=== PATIENT | female | born 1955 | race Caucasian/White ===

== ENCOUNTER 2023-02-24 13:48 | Outpatient (OUT) | payer MEDICARE, MEDICAID, SELFPAY ==
[2023-02-24 14:57] LABS: Thyroid Stimulating Hormone 0.756 uIU/mL (0.358-3.740)
[2023-02-24 15:10] LABS: Free T4 0.76 ng/dL (0.76-1.46)
== END 2023-02-24 13:49 | disposition home or self-care (01) ==
LOC: LAB 13:55
PROVIDERS: PCP Nurse Practitioner; Visit Provider Nurse Practitioner
DX: E03.9 Hypothyroidism, unspecified (principal); E55.9 Vitamin D deficiency, unspecified
CPT/HCPCS: 36415; 82306; 84439; 84443

== ENCOUNTER 2023-02-24 14:03 | Outpatient (OUT) | payer MEDICARE, MEDICAID, SELFPAY ==
[2023-02-24 14:42] LABS: Basophils Absolute Auto 0.1 10^3/uL (0.0-0.1); Basophils Percent Auto 0.6 % (0.2-2.0); Eosinophils Absolute Auto 0.2 10^3/uL (0.0-0.7); Eosinophils Percent Auto 2.3 % (0.9-7.0); Hematocrit 43.6 % (36.0-48.0); Immature Granulocytes Abs Auto 0.03 10^3/uL (0.00-0.03); Immature Granulocytes Pct Auto 0.4 % (0.0-0.5); Lymphocytes Absolute Auto 2.6 10^3/uL (1.2-3.8); Lymphocytes Percent Auto 31.2 % (20.5-60.0); Mean Corpuscular HGB Conc 32.1 g/dL (29.9-35.2); Mean Corpuscular Hemoglobin 26.6 pg (26.7-34.0); Mean Corpuscular Volume 82.9 fL (81.0-99.0); Mean Platelet Volume 11.7 fL (9.5-13.5); Monocytes Absolute Auto 0.7 10^3/uL (0.3-0.8); Monocytes Percent Auto 8.7 % (1.7-12.0); Neutrophils Absolute Auto 4.7 10^3/uL (1.4-6.5); Neutrophils Percent Auto 56.8 % (43.0-75.0); Platelet Count 180 10^3/uL (150-450); Red Blood Count 5.26 10^6/uL (4.20-5.40); Red Cell Distribution Width 15.3 % (11.0-15.0); White Blood Count 8.3 10^3/uL (4.0-11.0)
[2023-02-24 15:16] LABS: Alanine Aminotransferase 10 U/L (14-59); Albumin Globulin Ratio 1.3; Albumin Level 3.9 g/dL (3.4-5.0); Alkaline Phosphatase 73 U/L (46-116); Aspartate Amino Transferase 14 U/L (15-37); Bilirubin Direct 0.1 mg/dL (0.0-0.2); Bilirubin Total 0.4 mg/dL (0.2-1.0); Chol HDL Ratio 3.9; Cholesterol 295 mg/dL (<=200); Globulin 2.9 g/dL; Glucose 88 mg/dL (74-106); HDL Cholesterol 76 mg/dL (40-60); Total Protein 6.8 g/dL (6.4-8.2); Triglycerides 62 mg/dL (<=150); VLDL CHOLESTEROL 12.4 mg/dL
== END 2023-02-24 14:04 | disposition home or self-care (01) ==
LOC: LAB 14:05
PROVIDERS: PCP Nurse Practitioner; Visit Provider Psychiatry & Neurology Psychiatry
DX: E03.9 Hypothyroidism, unspecified (principal); E55.9 Vitamin D deficiency, unspecified; Z79.899 Other long term (current) drug therapy; F32.9 Major depressive disorder, single episode, unspecified
CPT/HCPCS: 36415; 80061; 80076; 80164; 82306; 82947; 84439; 84443; 85025

== ENCOUNTER 2023-09-21 14:25 | Outpatient (OUT) | payer MEDICARE, MEDICAID, SELFPAY ==
[2023-09-21 15:38] LABS: Influenza Virus A Antigen Negative; Influenza Virus B Antigen Negative; Internal Control Within Normal Limits
[2023-09-22 15:29] LABS: SARS-CoV-2 NAA NOT DETECTED (NOT DETECTE)
== END 2023-09-21 14:26 | disposition home or self-care (01) ==
LOC: LAB 14:34
PROVIDERS: PCP Nurse Practitioner; Visit Provider Nurse Practitioner
DX: Z20.822 Contact with and (suspected) exposure to COVID-19 (principal); Z11.8 Encounter for screening for other infectious and parasitic diseases
CPT/HCPCS: 87635; 87804

== ENCOUNTER 2023-09-21 14:25 | Outpatient (OUT) | payer MEDICARE, MEDICAID, SELFPAY ==
[2023-09-21 15:22] LABS: Basophils Absolute Auto 0.1 10^3/uL (0.0-0.1); Basophils Percent Auto 0.6 % (0.2-2.0); Eosinophils Absolute Auto 0.3 10^3/uL (0.0-0.7); Eosinophils Percent Auto 2.8 % (0.9-7.0); Hematocrit 44.5 % (36.0-48.0); Immature Granulocytes Abs Auto 0.04 10^3/uL (0.00-0.03); Immature Granulocytes Pct Auto 0.4 % (0.0-0.5); Lymphocytes Absolute Auto 3.2 10^3/uL (1.2-3.8); Lymphocytes Percent Auto 29.6 % (20.5-60.0); Mean Corpuscular HGB Conc 31.5 g/dL (29.9-35.2); Mean Corpuscular Hemoglobin 26.2 pg (26.7-34.0); Mean Corpuscular Volume 83.3 fL (81.0-99.0); Mean Platelet Volume 12.7 fL (9.5-13.5); Neutrophils Absolute Auto 6.2 10^3/uL (1.4-6.5); Neutrophils Percent Auto 57.6 % (43.0-75.0); Platelet Count 247 10^3/uL (150-450); Red Blood Count 5.34 10^6/uL (4.20-5.40); Red Cell Distribution Width 14.6 % (11.0-15.0); White Blood Count 10.8 10^3/uL (4.0-11.0)
[2023-09-21 15:49] LABS: Alanine Aminotransferase 61 U/L (14-59); Albumin Globulin Ratio 0.8; Albumin Level 3.4 g/dL (3.4-5.0); Alkaline Phosphatase 116 U/L (46-116); Anion Gap 16.3; Aspartate Amino Transferase 34 U/L (15-37); BUN Creatinine Ratio 14.8; Bilirubin Direct 0.1 mg/dL (0.0-0.2); Bilirubin Total 0.3 mg/dL (0.2-1.0); Calcium 9.6 mg/dL (8.5-10.1); Carbon Dioxide 26.1 mmol/L (21.0-32.0); Chol HDL Ratio 3.4; Cholesterol 249 mg/dL (<=200); Estimated GFR (African America 56 (>=60); Estimated GFR (Non-African Ame 47 (>=60); Globulin 4.3 g/dL; Glucose 104 mg/dL (74-106); HDL Cholesterol 74 mg/dL (40-60); Thyroid Stimulating Hormone 1.107 uIU/mL (0.358-3.740); Total Protein 7.7 g/dL (6.4-8.2); Triglycerides 77 mg/dL (<=150); VLDL CHOLESTEROL 15.4 mg/dL; Valproic Acid 45.8 ug/mL (50.0-100.0)
[2023-09-21 15:54] LABS: Chloride 101 mmol/L (98-107); Potassium 4.2 mmol/L (3.5-5.1); Sodium 138 mmol/L (136-145)
[2023-09-21 16:20] LABS: Estimated Average Glucose 111 mg/dL; Glycohemoglobin A1C 5.5 % (4.5-6.2)
[2023-09-22 08:13] LABS: Triiodothyronine (T3) 94 ng/dL (71-180)
== END 2023-09-21 14:26 | disposition home or self-care (01) ==
LOC: LAB 14:30
PROVIDERS: PCP Nurse Practitioner; Visit Provider Psychiatry & Neurology Psychiatry
DX: Z79.899 Other long term (current) drug therapy (principal); F32.9 Major depressive disorder, single episode, unspecified; Z20.822 Contact with and (suspected) exposure to COVID-19; Z11.8 Encounter for screening for other infectious and parasitic diseases
CPT/HCPCS: 36415; 80053; 80061; 80076; 80164; 83036; 84436; 84443; 84480; 85025; 87635; 87804

== ENCOUNTER 2024-12-10 09:57 | Outpatient (OUT) | payer MEDICARE, MEDICAID, SELFPAY ==
--- OUTSIDE RECORDS SUMMARY | 2024-04-09 10:15 | XMS_ITS ---
Author Organization [facility] Address [address] [place] [id number] Care Team Providers Care Conductor Road Freight Name Role Phone HowardChanda valeica Unavailable [phone] REASON FOR VISIT Recall (A) (29) Social History Sex Assigned At : Social History Observation Description Sex Assigned At Female Encounters Encounter Location Date Provider Diagnosis [facility] [address] [place] [phone] 04/09/2024 Shauna Beckett Plan Of Treatment Next Appt Details Provider Name:Shauna Beckett , 12/11/2024 03:45:00 PM, [address] [place] [address], [phone], Progress Notes * Chela MEYERSOB: (69 yo F)Acc No.[id number]:04/09/2024 Patient: Lucille MARIA Provider: Clara Beckett DMD :1955 A ge:68 Y S ex:Female Date:04/09/2024 Address:[facility] [address] [facility] [id number] Subjective: * Chief Complaints: * 1 . Recall (A) (70). * Medical History: Objective: * Vitals: Assessment: Plan: * Treatment: * Billing Information: * Visit Code: * Procedure Codes: * Electronic signature of Chanda Beckett DMD on 12/10/2024 at 10:03 AM EDT Sign off status: Pending * Provider: Clara Beckett DMD Date: 0 04/09/2024 Generated for Printi ng/Fadhruvg/eTransmitting on: 0 12/10/2024 10:03 AM EDT
--- OUTSIDE RECORDS SUMMARY | 2024-11-14 06:45 | XMS_ITS ---
Author Organization [facility] Address [address] [place] [phone] Care Team Providers Care Last Ironer Name Role Phone Shauna Beckett Unavailable [phone] Sukhwinder Crockett Unavailable [phone] REASON FOR VISIT Periodic Exam Social History Sex Assigned At : Social History Observation Description Sex Assigned At Female Encounters Encounter Location Date Provider Diagnosis [facility] [address] [place] [phone] 11/14/2024 Sukhwinder Crockett Plan Of Treatment Next Appt Details Provider Name:Shauna Beckett , 12/11/2024 03:45:00 PM, [address] [place], [place], [phone], Progress Notes * Chela MEYERSOB: (69 yo F)Acc No.[id number]:11/14/2024 Patient: Lucille MARIA Provider: Yara Crockett DDS :1955 A ge:69 Y S ex:Female Date:11/14/2024 Address[address] [id number] Subjective: * Chief Complaints: * 1 . Periodic Exam. * Medical History: Objective: * Vitals: Assessment: Plan: * Treatment: * Billing Information: * Visit Code: * Procedure Codes: * Electronic signature of Carl Crockett DDS on 12/10/2024 at 10:03 AM EDT Sign off status: Pending * Provider: Yara Crockett DDS Date: 0 11/14/2024 Generated for Chante doran/Kehinde/Jinny on: 0 12/10/2024 10:03 AM EDT
--- OUTSIDE RECORDS SUMMARY | 2024-12-04 08:45 | XMS_ITS ---
Author Organization [facility] Address [address] [place] [id number] Care Team Providers Care Production Welder Name Role Phone Chanda Beckettica Unavailable [phone] REASON FOR VISIT 1 Year Recall (A) (71) Social History Sex Assigned At : Social History Observation Description Sex Assigned At Female Encounters Encounter Location Date Provider Diagnosis [facility] [address] [place] [phone] 12/04/2024 Shauna Beckett Plan Of Treatment Next Appt Details Provider Name:Shauna Hatkavin , 12/11/2024 03:45:00 PM, [address] [place] [address], [phone], Progress Notes * Chela MEYERSOB: (69 yo F)Acc No.[id number]:12/04/2024 Patient: Lucille MARIA Provider: Clara Beckett DMD :1955 A ge:69 Y S ex:Female Date:12/04/2024 Address:[address] [facility] [id number] Subjective: * Chief Complaints: * 1 . 1 Year Recall (A) (71). * Medical History: Objective: * Vitals: Assessment: Plan: * Treatment: * Billing Information: * Visit Code: * Procedure Codes: * Electronic signature of Chanda Beckett DMD on 12/10/2024 at 10:02 AM EDT Sign off status: Pending * Provider: Clara Beckett DMD Date: 0 12/04/2024 Generated for Jasoni espinoza/Kehinde/eTransmitting on: 0 12/10/2024 10:02 AM EDT
--- OUTSIDE RECORDS SUMMARY | 2024-12-05 14:40 | XMS_ITS | Encounter Summary ---
Author Organization [facility] Address [address] [place] [address] Care Team Providers Care Recovery Operator Helper Name Role Phone Cesia Acosta OPTICIAN Unavailable [phone] Jordi Resendiz MD Primary Care Provider [phone] Cesia Acosta OPTICIAN Unavailable [phone] Reason for Visit * Reason Comments Medicare Annual Wellness Visit Initial Encounter Details Date Type Department Care Team (Late st Contact Info) Description 12/05/2024 2:40 PM EDT Office Visit [facility] [address] [place] [address] Cesia Acosta OPTICIAN [address] [place] [phone] Encounter for subsequent annual wellness visit (AWV) in Medicare patient (Primary Dx); Primary hypothyroidism (CMS/HCC); Environmental and seasonal allergies; Mixed hyperlipidemia (CMS/HCC); Major depressive disorder with single episode, in partial remission (HCC) (CMS/HCC); Encounter for screening mammogram for malignant neoplasm of breast Social History Tobacco Use Types Packs/Day Years Used Date Smoking Tobacco: Every Day Cigarettes Alcohol Use Standard Drinks/Week Comments Yes 2 (1 standard drink = 0.6 oz pur e alcohol) caffine: coffee 2 cups daily PHQ-2 Answer Date Recorded Patient Health Questionnaire-2 Score 2 12/05/2024 Comments Unknown Sex and Gender Information Value Date Recorded Sex Assigned at Not on file Legal Sex Female 8:35 PM EDT Gender Identity Not on file Sexual Orientation Not on file documented as of this encounter Last Filed Vital Signs Vital Sign Reading Time Taken Comments Blood Pressure 120/80 12/05/2024 2:50 PM EDT Pulse 69 12/05/2024 2:50 PM EDT Temperature 36.9 C (98.5 F) 12/05/2024 2:50 PM EDT Respiratory Rate 20 12/05/2024 2:50 PM EDT Oxygen Saturation 92% 12/05/2024 2:50 PM EDT Inhaled Oxygen Concentration - - Weight 75.8 kg (167 lb 3.2 oz) 12/05/2024 2:50 P M EDT Height - - Body Mass Index 28.7 10/12/2023 2:32 PM EDT documented in this encounter Functional Status * Over the past 2 weeks, how often have you been bothered by any of the following problems? Question Answer Date of Assessment Author Little interest or pleasure in doing things Several days 12/05/2024 3:01 PM EDT TAYE SORIANO Feeling down, depressed, or hopeless Several days 12/05/2024 3:01 PM EDT TAYE SORIANO Patient Health Questionnaire -2 Score 2 12/05/2024 3:01 PM EDT TAYE SORIANO A * Question Answer Date of Assessment Author Trouble falling or staying asleep, or sleeping too much Not at all 12/05/2024 3:01 PM EDT TAYE SORIANO A Feeling tired or having little energy Nearly every day 12/05/2024 3:01 PM EDT TAYE SORIANO A Poor appetite or overeating Several days 12/05/2024 3:01 PM EDT TAYE SORIANO A Feeling bad about yourself - or that you are a failure or have let yourself or your family down Several days 12/05/2024 3:01 PM EDT TAYE SORIANO A Trouble concentrating on things, such as reading the newspaper or watching television Several days 12/05/2024 3:01 PM EDT TAYE SORIANO A Moving or speaking so slowly that other people could have noticed? Or the opposite - being so fidgety or restless that you have been moving around a lot more than usual. Not at all 12/05/2024 3:01 PM EDT TAYE SORIANO A Thoughts that you would be better off or hurting yourself in some way Not at all 12/05/2024 3:01 PM EDT JANAK SORIANO Patient Health Questionnaire-9 Score 8 12/05/2024 3:01 PM EDT DARIO SORIANO * How difficult have these problems made it for you to do your work, take care of things at home, or get along with other people? Answer Date of Assessment Author Not difficult at all 12/05/2024 3:01 PM EDT MEGAN EDWARDS documented as of this encounter Patient Instructions * Patient Instructions* Cesia Acosta NP - 12/05/2024 2:40 PM EDT Get labs checked Try some allergy medications for next 2 weeks if not better call me documented in this encounter Progress Notes * Cesia Acosta NP - 12/05/2024 5:32 PM EDTAssociated Problem(s): Encounter for subsequent annual wellness visit (AWV) in Medicare patient Reviewed Ht/Wt/BMI Recommend eye exam yearly Recommend dental exams twice a year Balance work/leisure activities Exercises is recommended most days of the week (appropriate as chronic conditions allow) Follow up yearly and prn * Cesia Acosta NP - 12/05/2024 5:31 PM EDTAssociated Problem(s): Major depressive disorder with single episode, in partial remission (HCC) (CMS/HCC) Continue with dr ward * Cesia Acosta NP - 12/05/2024 5:31 PM EDTAssociated Problem(s): Mixed hyperlipidemia (CMS/HCC) Statin therapy prescribed Check labs yearly and prn dose changes * Cesia Acosta NP - 12/05/2024 5:30 PM EDTAssociated Problem(s): Environmental and seasonal allergies Sxs likely to be allergy related, try anti histamine as well as nasal steroids * Cesia Acosta NP - 12/05/2024 5:30 PM EDTAssociated Problem(s): Primary hypothyroidism (CMS/HCC) Was on levo, no labs over a year Get labs completed THEN will re order script * MEGAN SORIANO - 12/05/2024 2:40 PM EDT Allergies * Cesia Acosta NP - 12/05/2024 2:40 PM EDT Images from the original note were not included. Lucille Meyers is a 69 y.o. female presents with chief complaint of Medicare Annual Wellness Visit Initial HPI: Diet:variety Activity: not organized aerobic Mental Health Concerns: depression/anxiety/mood disorder Falls in the last year: no Still driving:yes Do you pay your bills:yes Any hearing problems:no Any Vision problems: yes Any Hospitalizations in the last year:no Specialist:eye doctor, Dr Ward HCPOA/Living Will: no Concerns: Thyroid Problem Presents for follow-up visit. Symptoms include anxiety and fatigue. Patient reports no constipation, depressed mood, diarrhea, leg swelling, palpitations, tremors or weight gain. The symptoms have been stable. SUBJECTIVE: MEDICATIONS: Current Outpatient Medications Medication Instructions divalproex (Depakote ER) 250 MG 24 hr tablet 1 tablet, Every morning divalproex (Depakote ER) 500 MG 24 hr tablet 1 tablet, Nightly DULoxetine (Cymbalta) [address] capsule 1 capsule, Daily DULoxetine (CYMBALTA) 30 mg, Daily ezetimibe (ZETIA) 10 mg, Oral, Daily levothyroxine (SYNTHROID, LEVOXYL) 25 mcg, Oral, Daily before breakfast Multiple Vitamin (multivitamin) tablet 1 tablet, Oral, Daily QUEtiapine (SEROquel) 50 MG tablet 1 tablet, Nightly ALLERGIES: Allergies Allergen Reactions Codeine GI intolerance REVIEW OF SYMPTOMS: Review of Systems Constitutional: Positive for fatigue. Negative for appetite change, chills, fever and weight gain. HENT: Negative for congestion, ear pain and sore throat. Eyes: Negative for pain, discharge, redness and visual disturbance. Respiratory: Negative for cough, shortness of breath and wheezing. Cardiovascular: Negative for chest pain, palpitations and leg swelling. Gastrointestinal: Negative for abdominal pain, blood in stool, constipation, diarrhea, nausea and vomiting. Genitourinary: Negative for difficulty urinating, dysuria and frequency. Musculoskeletal: Negative for arthralgias, back pain, joint swelling and myalgias. Skin: Negative for rash and wound. Neurological: Negative for dizziness, tremors, seizures, syncope and headaches. Psychiatric/Behavioral: Negative for behavioral problems, self-injury and suicidal ideas. The patient is nervous/anxious. Hematological: Does not bruise/bleed easily. Endocrine: Negative for polydipsia, polyphagia and polyuria. Allergic/Immunologic: Negative for environmental allergies and food allergies. PAST MEDICAL HISTORY Past Medical History: Diagnosis Date Alcohol addiction ([facility]) Anxiety At low risk for fall Depression ([facility]) Dermatitis, atopic GERD (gastroesophageal reflux disease) Hypothyroidism in adult ([facility]) Mixed hyperlipidemia ([facility]) Seasonal allergies Sinusitis Tinea Tobacco user Vitamin D insufficiency Past Surgical History: Procedure Laterality Date CATARACT EXTRACTION Bilateral 2021 Dr. Romero DILATION AND CURETTAGE OF UTERUS OTHER SURGICAL HISTORY Laparoscopy family history is not on file. OBJECTIVE: Visit Vitals BP 120/80 (BP Location: Left arm, Patient Position: Sitting, BP Cuff Size: Adult long) Pulse 69 Temp 98.5 ??F (Temporal) Resp 20 Wt 167 lb 3.2 oz SpO2 92% BMI 28.70 kg/m?? Smoking Status Every Day BSA 1.85 m?? Physical Exam Vitals and nursing note reviewed. Constitutional: General: She is not in acute distress. Appearance: Normal appearance. She is not ill-appearing. HENT: Head: Normocephalic and atraumatic. Right Ear: Tympanic membrane, ear canal and external ear normal. There is no impacted cerumen. Left Ear: Tympanic membrane, ear canal and external ear normal. There is no impacted cerumen. Nose: Rhinorrhea present. No congestion. Mouth/Throat: Mouth: Mucous membranes are moist. Pharynx: No oropharyngeal exudate or posterior oropharyngeal erythema. Eyes: Extraocular Movements: Extraocular movements intact. Conjunctiva/sclera: Conjunctivae normal. Neck: Vascular: No carotid bruit. Cardiovascular: Rate and Rhythm: Normal rate and regular rhythm. Pulses: Normal pulses. Heart sounds: Normal heart sounds. Pulmonary: Effort: Pulmonary effort is normal. Breath sounds: Normal breath sounds. No wheezing or rhonchi. Abdominal: General: Bowel sounds are normal. There is no distension. Palpations: Abdomen is soft. There is no mass. Tenderness: There is no abdominal tenderness. Musculoskeletal: General: Normal range of motion. Cervical back: Normal range of motion and neck supple. Right lower leg: No edema. Left lower leg: No edema. Lymphadenopathy: Cervical: No cervical adenopathy. Skin: General: Skin is warm and dry. Capillary Refill: Capillary refill takes 2 to 3 seconds. Findings: No rash. Neurological: General: No focal deficit present. Mental Status: She is alert and oriented to person, place, and time. Psychiatric: Mood and Affect: Mood normal. Behavior: Behavior normal. Thought Content: Thought content normal. Judgment: Judgment normal. ASSESSMENT AND PLAN: No follow-ups on file. Problem List Items Addressed This Visit Major depressive disorder with single episode, in partial remission (HCC) ([facility]) Continue with dr ward Primary hypothyroidism ([facility]) - Primary Was on levo, no labs over a year Get labs completed THEN will re order script Mixed hyperlipidemia ([facility]) Statin therapy prescribed Check labs yearly and prn dose changes Encounter for screening mammogram for malignant neoplasm of breast Relevant Orders Bilateral screening mammogram Environmental and seasonal allergies Sxs likely to be allergy related, try anti histamine as well as nasal steroids Relevant Medications cetirizine (ZyrTEC) 10 MG tablet fluticasone (Flonase) 50 MCG/ACT nasal spray documented in this encounter Plan of Treatment Upcoming Encounters Date Type Department Care Team (Late st Contact Info) Description 06/11/2025 1:00 PM EST Office Visit [facility] [address] [place] [phone] Cesia Acosta NP [address] [place] [phone] 12/12/2025 11:00 AM EDT [facility] Visit [facility] [address] [place] [phone] Cesia Acosta NP [address] [place] [phone] Scheduled Orders Name Type Priority Associated Diagnoses Orde r Schedule Bilateral screening mammogram Imaging Routine Encounter for screening mammogram for malignant neoplasm of breast Expected: 12/05/2024 (Approximate), Expires: 02/04/2026 documented as of this encounter Visit Diagnoses Diagnosis Encounter for subsequent annual wellness visit (AWV) in Medicare patient- Primary Primary hypothyroidism (CMS/HCC) Unspecified hypothyroidism Environmental and seasonal allergies Mixed hyperlipidemia (CMS/HCC) Mixed hyperlipidemia Major depressive disorder with single episode, in partial remission (HCC) (CMS/HCC) Encounter for screening mammogram for malignant neoplasm of breast documented in this encounter Additional Health Concerns Assessment Noted Time PHQ-9 Depression Total Score: 8 12/06/19 25 3:01 PM EDT documented as of this encounter Care Teams Recovery Operator Helper Relationship Specialty Start Date End Date Jordi Resendiz MD [address] [place] [address] PCP - General Family Medicine 08/10/23 Cesia Acosta NP [address] [place] [address] PCP - ACO Reach 08/17/24 Cesia Acosta NP [address] [place] [address] Nurse Practitioner Family Medicine 08/10/23 documented as of this encounter
--- OUTSIDE RECORDS SUMMARY | 2024-12-10 10:03 | XMS_ITS | Clinical Summary ---
Author Organization [facility] Address [address] [place] [address] Care Team Providers Care Manager Community Outreach Name Role Phone Cesia Acosta NP Unavailable [phone] Jordi Resendiz MD Primary Care Provider [phone] Cesia Acosta WELLNESS HEALTH COACH Unavailable [phone] Allergies Active Allergy Reactions Criticality Noted Date Comments Codeine GI intolerance 08/10/2023 Medications divalproex (Depakote ER) 500 MG 24 hr tablet Take 1 tablet by mouth at bedtime 3 Active divalproex (Depakote ER) 250 MG 24 hr tablet Take 1 tablet by mouth in the morning. 3 Active DULoxetine (Cymbalta) [address] capsule Take 1 capsule by mouth in the morning. 3 Active QUEtiapine (SEROquel) 50 MG tablet Take 1 tablet by mouth at bedtime 3 Active DULoxetine (Cymbalta) [address] capsule Take 30 mg by mouth Daily 4 Active Multiple Vitamin (multivitamin) tablet Take 1 tablet by mouth Daily Active levothyroxine (Synthroid, Levoxyl) 25 MCG tabletIndications: Primary hypothyroidism (CMS/HCC) Take 1 tablet (25 mcg) by mouth in the morning. Take before meals. 90 tablet 4 Active ezetimibe (Zetia) 10 MG tabletIndications: Mixed hyperlipidemia (CMS/HCC) Take 1 tablet (10 mg) by mouth Daily 90 tablet 4 Active cetirizine (ZyrTEC) 10 MG tabletIndications: Environmental and seasonal allergies Take 1 tablet (10 mg) by mouth Daily 30 tablet 2 05/28/202 5 025 Active fluticasone (Flonase) 50 MCG/ACT nasal sprayIndications:E nvironmental and seasonal allergies Administer 2 sprays into each nostril Daily Shake gently. Before first use, prime pump. After use, clean tip and replace cap. 16 g 2 5 025 Active Active Problems Problem Noted Date Diagnosed Date Environmental and seasonal allergies 12/05/2024 Assessment & Plan (12/05/2024 5:30 PM EDT): Sxs likely to be allergy related, try anti histamine as well as nasal steroids Encounter for subsequent [facility] wellness visit (AWV) in Medicare patient 12/05/2024 Assessment & Plan (12/05/2024 5:32 PM EDT): Reviewed Ht/Wt/BMI Recommend eye exam yearly Recommend dental exams twice a year Balance work/leisure activities Exercises is recommended most days of the week (appropriate as chronic conditions allow) Follow up yearly and prn Encounter for screening mamm ogram for malignant neoplasm of breast 11/10/2023 Alcohol dependence 10/12/2023 Anxiety 10/12/2023 Assessment & Plan (10/12/2023 3:30 PM EDT): Continue with dr ward Uncertain if her dizziness is somewhat related to her anxiety Bilateral bunions 10/12/2023 Major depressive disorder wi th single episode, in partial remission (HCC) 10/12/2023 Assessment & Plan (12/05/2024 5:31 PM EDT): Continue with dr ward Assessment & Plan (10/12/2023 3:30 PM EDT): Follow with psych Gastroesophageal reflux disease without esophagi tis 10/12/2023 Primary hypothyroidism 10/12/2023 Assessment & Plan (12/05/2024 5:30 PM EDT): Was on levo, no labs over a year Get labs completed THEN will re order script Assessment & Plan (10/12/2023 3:29 PM EDT): Feels sluggish, although labs normal Will restart levo at 25mcg Recheck labs in 8 weeks Mixed hyperlipidemia 10/12/2023 Assessment & Plan (12/05/2024 5:31 PM EDT): Statin therapy prescribed Check labs yearly and prn dose changes Assessment & Plan (10/12/2023 3:30 PM EDT): Could not tolerate statin d/t muscle and joint pain We will trial zetia at 10mg Recheck labs in 8 weeks Allergic rhinitis, seasonal 10/12/2023 Tobacco abuse 10/12/2023 Vitamin D deficiency 10/12/2023 Vertigo 10/12/2023 Assessment & Plan (10/12/2023 3:32 PM EDT): Will trial some antivert for prn use No acute findings on neuro exam Overweight 10/12/2023 Abnormal renal function 10/12/2023 Assessment & Plan (10/12/2023 3:35 PM EDT): Check labs with recheck of cholesterol and thyroid Other fatigue 10/12/2023 Encounters Date Type Department Care Team Description 12/05/2024 2:40 PM EDT Office Visit [facility] [address] [place] [phone] Cesia Acosta NP Encounter for subsequent annual wellness visit (AWV) in Medicare patient (Primary Dx); Primary hypothyroidism (CMS/HCC); Environmental and seasonal allergies; Mixed hyperlipidemia (CMS/HCC); Major depressive disorder with single episode, in partial remission (HCC) (CMS/HCC); Encounter for screening mammogram for malignant neoplasm of breast 12/05/2024 Bamboo flowsheet [facility] [address] [place] [address] Cesia Acosta NP 11/28/2024 Orders Only [facility] [address] [place] [phone] Cesia Acosta NP Gastroesophageal reflux disease without esophagitis (Primary Dx); Primary hypothyroidism (CMS/HCC); Vitamin D deficiency; Mixed hyperlipidemia (CMS/HCC) 11/28/2024 Telephone [facility] [address] [place] [address] Cesia Acosta NP 11/27/2024 Telephone [facility] [address] [place] [address] Cesia Acosta NP 11/02/2024 10:15 AM EDT Office Visit [facility] [address] [place] [address] Yfn Romero DO Bilateral posterior capsular opacification (Primary Dx) 11/02/2024 Bamboo flowsheet [facility] [address] [place] [address] Yfn Romero DO 11/02/2024 Travel 09/22/2024 Refill [facility] [address] [place] [address] Cesia Acosta NP Mixed hyperlipidemia (CMS/HCC) 09/21/2024 Refill [facility] [address] [place] [address] Cesia Acosta NP Primary hypothyroidism ([facility]/HCC) from Last 3 Months Social History Tobacco Use Types Packs/Day Years Used Date Smoking Tobacco: Every Day Cigarettes Tobacco Cessation:Ready to Q uit: Not Asked; Counseling Given: Not Answered Alcohol Use Standard Drinks/Week Comments Yes 2 (1 standard drink = 0.6 oz pur e alcohol) caffine: coffee 2 cups daily PHQ-2 Answer Date Recorded Patient Health Questionnaire-2 Score 2 12/05/2024 Comments Unknown Sex and Gender Information Value Date Recorded Sex Assigned at Not on file Legal Sex Female 8:35 PM EDT Gender Identity Not on file Sexual Orientation Not on file Last Filed Vital Signs Vital Sign Reading [...] oz) 12/05/2024 2:50 P M EDT Height 162.6 cm (5' 4 ) 10/12/2023 2:32 PM EDT Body Mass Index 28.7 10/12/2023 2:32 PM EDT Plan of Treatment Upcoming Encounters Date Type Department Care Team (Late st Contact Info) Description 06/11/2025 1:00 PM EST Office Visit [facility] [address] [place] [address] Cesia Acosta NP [address] [place] [address] 12/12/2025 11:00 AM EDT Office Visit [facility] [address] [place] [address] Cesia Acosta, VIVIANE [address] [place] [address] Health Maintenance Due Date Last Done Comments CT Colonography 1953 Colonoscopy 1953 Colorectal Cancer Screening 1953 FIT-DNA 1953 FIT 1953 FOBT 1953 Sigmoidoscopy 1953 Pneumococcal Vaccine: 65+ Ye ars (1 of 2 - PCV) 1972 Mammogram 1993 Influenza Vaccine (Season Ended) 2025 Medicare Annual Wellness (AWV) 12/05/2025 12/05/2024 , 12/05/2024 Insurance MEDICARE [place]ICAID [place] Care Teams Manager Community Outreach Relationship Specialty Start Date End Date Jordi Resendiz MD [address] [place] [address] PCP - General Family Medicine 08/10/23 Cesia Acosta NP [address] [place] [address] PCP - ACO Reach 08/17/24 Cesia Acosta NP [address] [place] [address] Nurse Practitioner Family Medicine 08/10/23
--- OUTSIDE RECORDS SUMMARY | 2024-12-10 10:03 | XMS_ITS | Patient Health Record ---
Author Organization [facility] vices Address [address] [place] [id number] Care Team Providers Care Personnel Security Assistant Name Role Phone Shauna Beckett Unavailable [phone] Sukhwinder Crockett Unavailable [phone] Allergies Allergen (clinical drug ingredient) Drug/Non Drug Allergy documented on EMR Reaction Allergy Type Onset Date Status codeine Codeine Unknown Drug Allergy Active Reason For Referral No Information Medications Medication SIG (Take, Route, Frequency, Duration) Notes Start Date End Date Status QUEtiapine Fumarate Not-Taking DULoxetine HCl Activ e Levothyroxine Sodium Active Divalproex Sodium ER Active Social History Sex Assigned At : Social History Observation Description Sex Assigned At Female Plan Of Treatment Next Appt Details Provider Name:Shauna Beckett , 12/11/2024 03:45:00 PM, [address] [place] [address], [id number], Insurance Providers Payer Name Payer Address Payer Phone Subscriber Number Group Number Insured Name Patient Relationship to Insured Coverage Start Date Coverage End Date Criss Pineda [id number] [place], [place] [id number] Luigi Lucille Self - patient is the insured 2
--- OUTSIDE RECORDS SUMMARY | 2024-12-10 10:03 | XMS_ITS | Encounter Summary ---
Author Organization [facility] Address [address] [place] [address] Care Team Providers Care Web Marketing Strategist Name Role Phone Cesia Acosta AIR TRAFFIC SUPERVISOR Unavailable [phone] Jordi Resendiz MD Primary Care Provider [phone] Cesia Acosta AIR TRAFFIC SUPERVISOR Unavailable [phone] Reason for Visit * Reason Comments Med Refill Encounter Details Date Type Department Care Team (Late Contact Info) Description 09/21/2024 Refill [facility] [address] [place] [address] Cesia Acosta NP [address] [place] [address] Primary hypothyroidism (CMS/HCC) Social History Tobacco Use Types Packs/Day Years Used Date Smoking Tobacco: Every Day Cigarettes Alcohol Use Standard Drinks/Week Comments Yes 2 (1 standard drink = 0.6 oz pur e alcohol) caffine: coffee 2 cups daily PHQ-2 Answer Date Recorded Patient Health Questionnaire-2 Score 0 10/12/2023 Comments Unknown Sex and Gender Information Value Date Recorded Sex Assigned at Not on file Legal Sex Female 8:35 PM EDT Gender Identity Not on file Sexual Orientation Not on file documented as of this encounter Plan of Treatment Upcoming Encounters Date Type Department Care Team ([facility] Contact Info) Description 06/11/2025 1:00 PM EST Office Visit [facility] [address] [place] [phone] Cesia Acosta NP [address] [place] [address] 12/12/2025 11:00 AM EDT Office Visit [facility] [address] [place] [address] Cesia Acosta NP [address] [place] [phone] documented as of this encounter Visit Diagnoses Diagnosis Primary hypothyroidism (CMS/HCC) Unspecified hypothyroidism documented in this encounter Care Teams Web Marketing Strategist Relationship Specialty Start Date End Date Jordi Resendiz MD [address] [place] [phone] PCP - General Family Medicine 08/10/23 Cesia Acosta NP [address] [place] [phone] PCP - ACO Reach 08/17/24 Cesia Acosta NP [address] [place] [phone] Nurse Practitioner Family Medicine 08/10/23 documented as of this encounter
--- OUTSIDE RECORDS SUMMARY | 2024-12-10 10:03 | XMS_ITS | Encounter Summary ---
Author Organization [facility] Address [address] [place] [address] Care Team Providers Care Senior Clinical Consultant Name Role Phone Cesia Acosta TECHNICAL BUYER Unavailable [phone] Jordi Resendiz MD Primary Care Provider [phone] Cesia Acosta TECHNICAL BUYER Unavailable [phone] Encounter Details Date Type Department Care Team (Late Contact Info) Description 11/28/2024 Orders Only [facility] [address] [place] [address] Cesia Acosta, VIVIANE [address] [place] [address] Gastroesophageal reflux disease without esophagitis (Primary Dx); Primary hypothyroidism (CMS/HCC); Vitamin D deficiency; Mixed hyperlipidemia (CMS/HCC) Social History Tobacco Use Types Packs/Day [...] Encounters Date Type Department Care Team (Late Contact Info) Description 06/11/2025 1:00 PM EST Office Visit [facility] [address] [place] [address] Cesia Acosta, VIVIANE [address] [place] [address] 12/12/2025 11:00 AM EDT Office Visit [facility] [address] [place] [address] Cesia Acosta NP [address] [place] [address] Scheduled Orders Name Type Priority Associated Diagnoses Orde r Schedule CBC and differential Lab Routine Gastroesophageal reflux disease without esophagitis Expected: 11/28/2024 (Approximate), Expires: 11/28/2025 Comprehensive metabolic panel Lab Routine Vitamin D deficiency Mixed hyperlipidemia (CMS/HCC) Expected: 11/28/2024 (Approximate), Expires: 11/28/2025 Lipid panel Lab Routine Mixed hyperlipidemia (CMS/HCC) Expected: 11/28/2024 (Approximate), Expires: 11/28/2025 TSH Lab Routine Primary hypothyroidism (CMS/HCC) Expected: 11/28/2024 (Approximate), Expires: 11/28/2025 T4, free Lab Routine Primary hypothyroidism (CMS/HCC) Expected: 11/28/2024 (Approximate), Expires: 11/28/2025 Urinalysis with reflex microscopic (clean catch) Lab Routine Gastroesophageal reflux disease without esophagitis Expected: 11/28/2024 (Approximate), Expires: 11/28/2025 Vitamin D 25 hydroxy Lab Routine Vitamin D deficiency Expected: 11/28/2024 (Approximate), Expires: 11/28/2025 documented as of this encounter Visit Diagnoses Diagnosis Gastroesophageal reflux disease without esophagitis- Primary Esophageal reflux Primary hypothyroidism (CMS/HCC) Unspecified hypothyroidism Vitamin D deficiency Mixed hyperlipidemia (CMS/HCC) Mixed hyperlipidemia documented in this encounter Care Teams Senior Clinical Consultant Relationship Specialty Start Date End Date Jordi Resendiz MD [address] [place] [address] PCP - General Family Medicine 08/10/23 Cesia Acosta NP [address] [place] [address] PCP - ACO Reach 08/17/24 Cesia Acosta NP [address] [place] [address] Nurse Practitioner Family Medicine 08/10/23 documented as of this encounter
--- OUTSIDE RECORDS SUMMARY | 2024-12-10 10:03 | XMS_ITS | Encounter Summary ---
Author Organization [facility] Address [address] [place] [address] Care Team Providers Care Oracle Security Consultant Name Role Phone Cesia Acosta BUTTON SEWING MACHINE OPERATOR Unavailable [phone] Jordi Resendiz MD Primary Care Provider [phone] Cesia Acosta BUTTON SEWING MACHINE OPERATOR Unavailable [phone] Encounter Details Date Type Department Care Team (Late st Contact Info) Description 11/28/2024 [facility] [address] [place] [address] Cesia Acosta BUTTON SEWING MACHINE OPERATOR [address] [place] [address] Social History Tobacco Use Types Packs/Day Years [...] on file documented as of this encounter Miscellaneous Notes * Telephone Encounter - MEGAN SORIANO - 11/28/2024 6:46 PM EDT Text Acute Care Occupational Therapist Hi, this is Lucille calling again. I called yesterday. I have an appointment scheduled with Cesia on december 05 and it is been a little bit since I have been in to see or I am out of a couple scripts and I was wondering if you could call the hospital [facility] and call in complete labs before my appointment. So she is already got them. You can call me back. [phone], thank you. documented in this encounter Plan of Treatment Upcoming Encounters Date Type Department Care Team (Late st Contact Info) Description 06/11/2025 1:00 PM EST Office Visit [facility] [address] [place] [address] Cesia Acosta, VIVIANE [address] [place] [address] 12/12/2025 11:00 AM EDT Office Visit [facility] [address] [place] [address] Cesia Acosta, VIVIANE [address] [place] [address] documented as of this encounter Visit Diagnoses Not on filedocumented in this encounter Care Teams Oracle Security Consultant Relationship Specialty Start Date End Date Jordi Resendiz MD [address] [place] [address] PCP - General Family Medicine 08/10/23 Cesia Acosta NP [address] [place] [address] PCP - ACO Reach 08/17/24 Cesia Acosta NP [address] [place] [address] Nurse Practitioner Family Medicine 08/10/23 documented as of this encounter
--- OUTSIDE RECORDS SUMMARY | 2024-12-10 10:03 | XMS_ITS | Encounter Summary ---
Author Organization [facility] Address [address] [place] [address] Care Team Providers Care Stave Hewer Name Role Phone Cesia Acosta CUSHION SPRING ASSEMBLER Unavailable [phone] Jordi Resendiz MD Primary Care Provider [phone] Cesia Acosta CUSHION SPRING ASSEMBLER Unavailable [phone] Encounter Details Date Type Department Care Team (Late st Contact Info) Description 11/27/2024 [facility]phone [facility] [address] [place] [address] Cesia Acosta, CUSHION SPRING ASSEMBLER [address] [place] [address] Social History Tobacco Use Types Packs/Day Years [...] * Telephone Encounter - MEGAN SORIANO - 11/27/2024 2:52 PM EDT Text Party Plan Demonstrator Hi, this is Lucille WEBER. I have an appointment with Cesia on the and I was wondering if you could have her call in some lab work at [facility] before my appointment. It is been a while since I have been there and I would just like her to have it there before I have my appointment. You can call me back at [phone]. Thank you. documented in this encounter Plan of Treatment Upcoming Encounters Date Type Department Care Team (Late st Contact Info) Description 06/11/2025 1:00 PM EST Office Visit [facility] [address] [place] [address] Cesia Acosta, VIVIANE [address] [place] [address] 12/12/2025 11:00 AM EDT Office Visit [facility] [address] [place] [address] Cesia Acosta NP [address] [place] [address] documented as of this encounter Visit Diagnoses Not on filedocumented in this encounter Care Teams Stave Hewer Relationship Specialty Start Date End Date Jordi Resendiz MD [address] [place] [phone] PCP - General Family Medicine 08/10/23 Cesia Acosta NP [address] [place] [address] PCP - ACO Reach 08/17/24 Cesia Acosta NP [address] [place] [address] Nurse Practitioner Family Medicine 08/10/23 documented as of this encounter
--- OUTSIDE RECORDS SUMMARY | 2024-12-10 10:03 | XMS_ITS | Clinical Summary ---
Author Organization [facility] Address [address] [place] [address] Care Team Providers Care Bacon Skinner Name Role Phone Cesia Acosta Jenna SAMUEL Primary Care Provider [phone] Allergies Active Allergy Reactions Criticality Noted Date Comments Codeine Unknown 11/26/2015 Medications * This document contains information received from the source organization and may not represent a complete record from that organization. DULoxetine (CYMBALTA) 60 mg capsule Take 60 mg by mouth once daily. 30 mg @ noon and 60 mg @ hs Active atorvastatin (LIPITOR) 20 mg tablet Take 20 mg by mouth once daily. Active LEVOTHYROXINE SODIUM (LEVOTHYROXINE ORAL) Take 25 mcg by mouth once daily. Active Omeprazole 40 mg capsule Take 40 mg by mouth once daily. Active simvastatin (ZOCOR) 40 mg tablet Take 40 mg by mouth daily at bedtime. Active busPIRone (BUSPAR) 5 mg tablet Take 5 mg by mouth twice daily. Active Active Problems No known active problems Family History Medical History Relation Comments Alzheimer's Disease Father Diabetes Father Diabetes Mother Heart Mother Relation Status Comments Father Mother Social History Tobacco Use Types Packs/Day Years Used Date Smoking Tobacco: Some Days Cigarettes Alcohol Use Standard Drinks/Week Comments No 0 (1 standard drink = 0.6 oz pur e alcohol) Comments Unknown Sex and Gender Information Value Date Recorded Sex Assigned at Not on file Legal Sex Female 2:58 PM EST Gender Identity Not on file Sexual Orientation Not on file Last Filed Vital Signs Vital Sign Reading Time Taken Comments Blood Pressure 116/81 12/04/2015 8:29 AM EDT Pulse 88 12/04/2015 8:29 AM EDT Temperature 36.7 C (98 F) 12/04/2015 8:29 AM EDT Respiratory Rate 16 12/04/2015 8:29 AM EDT Oxygen Saturation 98% 12/04/2015 8:29 AM EDT Inhaled Oxygen Concentration - - Weight 72.6 kg (160 lb) 12/04/2015 8:29 AM EDT Height 162.6 cm (5' 4 ) 12/04/2015 8:29 AM EDT Body Mass Index 27.46 12/04/2015 8:29 AM EDT Plan of Treatment Health Maintenance Due Date Last Done Comments Anxiety Screening 09/11/1971 Depression Screening 09/11/1971 Hepatitis C Screening 09/11/1971 DTaP,Tdap,Td Vaccine (1 - Tdap) [address] Colonography 1998 Cologuard (FIT-DNA) 1998 Colonoscopy 1998 Colorectal Cancer Screening 1998 Diabetes Screening 1998 Fecal Occult Blood 1998 Lipid Screening 1998 Sigmoidoscopy 1998 Pneumococcal Vaccine: 50+ (1 of 1 - PCV) 09/11/2003 Shingrix Vaccine (1 of 2) 09/11/2003 Bone Density Screening 2018 Covid-19 Vaccine ( - season) 2024 Advance Directive Discussion 07/11/2024 Influenza Vaccine (Season Ended) 2025 RSV Vaccine (1 - 1-dose 75+ series) 2028 Insurance MEDICARE MEDICAID [place] Care Teams Bacon Skinner Relationship Specialty Start Date End Date Cesia Acosta, CARE PROFESSIONAL PCP - General Family Medicine 11/27/15
--- OUTSIDE RECORDS SUMMARY | 2024-12-10 10:03 | XMS_ITS | Encounter Summary ---
Author Organization [facility] Address [address] [place] [address] Care Team Providers Care Field Geologist Name Role Phone Cesia Acosta XEROX MACHINE MECHANIC Unavailable [phone] Jordi Resendiz MD Primary Care Provider [phone] Cesia Acosta XEROX MACHINE MECHANIC Unavailable [phone] Encounter Details Date Type Department Care Team (Late st Contact Info) Description 08/21/2023 Abstract [facility] [address] [place] [phone] Cesia Acosta NP [address] [place] [address] Social History Tobacco Use Types Packs/Day Years Used Date Smoking Tobacco: Every Day Cigarettes Comments Unknown Sex and Gender Information Value Date Recorded Sex Assigned at Not on file Legal Sex Female 8:35 PM EDT Gender Identity Not on file Sexual Orientation Not on file documented as of this encounter Plan of Treatment Upcoming Encounters Date Type Department Care Team (Late st Contact Info) Description 06/11/2025 1:00 PM EST Office Visit [facility] [address] [place] [address] Cesia Acosta NP [address] [place] [address] 12/12/2025 11:00 AM EDT Office Visit [facility] [address] [place] [address] Cesia Acosta NP [address] [place] [address] documented as of this encounter Visit Diagnoses Not on filedocumented in this encounter Care Teams Field Geologist Relationship Specialty Start Date End Date Jordi Resendiz MD [address] [place] [address] PCP - General Family Medicine 08/10/23 Cesia Acosta NP [address] [place] [address] PCP - ACO Reach 08/17/24 Cesia Acosta NP [address] [place] [address] Nurse Practitioner Family Medicine 08/10/23 documented as of this encounter
--- OUTSIDE RECORDS SUMMARY | 2024-12-10 10:03 | XMS_ITS | Encounter Summary ---
Author Organization [facility] Address [address] [place] [address] Care Team Providers Care Poultry And Fish Butcher Name Role Phone Cesia Acosta KINDERGARTEN TEACHER ASSISTANT Unavailable [phone] Jordi Resendiz MD Primary Care Provider [phone] Cesia Acosta KINDERGARTEN TEACHER ASSISTANT Unavailable [phone] Encounter Details Date Type Department Care Team (Late st Contact Info) Description 09/27/2023 Orders Only [facility] [address] [place] [phone] Cesia Acosta, VIVIANE [address] [place] [address] Social History Tobacco Use Types Packs/Day Years [...] Visit [facility] [address] [place] [phone] Cesia Acosta, VIVIANE [address] [place] [phone] 12/12/2025 11:00 AM EDT Office Visit [facility] [address] [place] [phone] Cesia Acosta NP [address] [place] [address] documented as of this encounter Procedures Procedure Name Priority Date/Time Associated Diagnosis Comments SCANNED LABS Routine 09/27/2023 1:20 PM EDT documented in this encounter Results * SCANNED LABS (09/27/2023 1:20 PM EDT) Cesia Acosta KINDERGARTEN TEACHER ASSISTANT LAB CHG PERFORMABLES Final Resu lt documented in this encounter Visit Diagnoses Not on filedocumented in this encounter Care Teams Poultry And Fish Butcher Relationship Specialty Start Date End Date Jordi Resendiz MD [address] [place] [address] PCP - General Family Medicine 08/10/23 Cesia Acosta NP [address] [place] [phone] PCP - ACO Reach 08/17/24 Cesia Acosta NP [address] [place] [address] Nurse Practitioner Family Medicine 08/10/23 documented as of this encounter
--- OUTSIDE RECORDS SUMMARY | 2024-12-10 10:03 | XMS_ITS | Encounter Summary ---
Author Organization [facility] Address [address] [place] [address] Care Team Providers Care Harness Fitter Name Role Phone Cesia Acosta HOME SALES SERVICE PROFESSIONAL Unavailable [phone] Jordi Resendiz MD Primary Care Provider Cesia Acosta HOME SALES SERVICE PROFESSIONAL Unavailable [phone] Encounter Details Date Type Department Care Team (Late Contact Info) Description 12/05/2024 Bamboo flowsheet [facility] [address] [place] [address] Cesia Acosta NP [address] [place] [address] Social History Tobacco Use Types Packs/Day Years [...] 06/11/2025 1:00 PM EST Office Visit [facility] [address] [place] [address] Cesia Acosta NP [address] [place] [address] 12/12/2025 11:00 AM EDT Office Visit [facility] [address] [place] [address] Cesia Acosta NP [address] [place] [phone] documented as of this encounter Visit Diagnoses Not on filedocumented in this encounter Additional Health Concerns Assessment Noted Time PHQ-9 Depression Total Score: 8 12/06/19 25 3:01 PM EDT documented as of this encounter Care Teams Harness Fitter Relationship Specialty Start Date End Date Jordi Resendiz MD [address] [place] [phone] PCP - General Family Medicine 08/10/23 Cesia Acosta NP [address] [place] [phone] PCP - ACO Reach 08/17/24 Cesia Acosta NP [address] [place] [phone] Nurse Practitioner Family Medicine 08/10/23 documented as of this encounter
[2024-12-10 10:32] LABS: Basophils Absolute Auto 0.1 10^3/uL (0.0-0.1); Basophils Percent Auto 0.6 % (0.2-2.0); Eosinophils Absolute Auto 0.2 10^3/uL (0.0-0.7); Hematocrit 47.6 % (36.0-48.0); Hemoglobin 15.3 g/dL (12.0-16.0); Immature Granulocytes Abs Auto 0.05 10^3/uL (0.00-0.03); Immature Granulocytes Pct Auto 0.5 % (0.0-0.5); Lymphocytes Absolute Auto 3.9 10^3/uL (1.2-3.8); Lymphocytes Percent Auto 39.3 % (20.5-60.0); Mean Corpuscular HGB Conc 32.1 g/dL (29.9-35.2); Mean Corpuscular Hemoglobin 27.3 pg (26.7-34.0); Mean Corpuscular Volume 84.8 fL (81.0-99.0); Mean Platelet Volume 11.6 fL (9.5-13.5); Monocytes Percent Auto 9.8 % (1.7-12.0); Neutrophils Absolute Auto 4.8 10^3/uL (1.4-6.5); Neutrophils Percent Auto 47.8 % (43.0-75.0); Platelet Count 236 10^3/uL (150-450); Red Blood Count 5.61 10^6/uL (4.20-5.40); Red Cell Distribution Width 13.8 % (11.0-15.0)
[2024-12-10 11:18] LABS: Bilirubin Urine NEGATIVE (NEGATIVE); Blood Urine NEGATIVE (NEGATIVE); Clarity Urine CLEAR (CLEAR); Color Urine YELLOW (YELLOW); Glucose Urine UA NEGATIVE (NEGATIVE); Ketones Urine NEGATIVE (NEGATIVE); Leukocyte Esterase Urine NEGATIVE (NEGATIVE); Nitrite Urine NEGATIVE (NEGATIVE); Protein Urine NEGATIVE (NEG/TRACE); Specific Gravity Urine <=1.005 (1.005-1.025); Urobilinogen Urine 0.2 EU/dL (0.2-1.0)
[2024-12-10 11:24] LABS: Urine Microscopic Indicated NO
[2024-12-10 12:37] LABS: BUN Creatinine Ratio 22.3; Bilirubin Total 0.4 mg/dL (0.2-1.0); Calcium 9.9 mg/dL (8.5-10.1); Carbon Dioxide 26.3 mmol/L (21.0-32.0); Chloride 103 mmol/L (98-107); Estimated GFR (African America 53 (>=60 mL/min/1.73m^2); Estimated GFR (Non-African Ame 44 (>=60 mL/min/1.73m^2); Glucose 104 mg/dL (74-106); Potassium 4.3 mmol/L (3.5-5.1); Sodium 141 mmol/L (136-145)
[2024-12-10 12:38] LABS: Alanine Aminotransferase 20 U/L (14-59); Alkaline Phosphatase 77 U/L (46-116); Aspartate Amino Transferase 14 U/L (15-37); Free T4 0.71 ng/dL (0.76-1.46); Total Protein 7.3 g/dL (6.4-8.2)
[2024-12-10 12:39] LABS: Albumin Level 3.6 g/dL (3.4-5.0); Chol HDL Ratio 2.9; Cholesterol 263 mg/dL (<=200); Globulin 3.7 g/dL; HDL Cholesterol 90 mg/dL (40-60); Thyroid Stimulating Hormone 4.597 uIU/mL (0.358-3.740); Triglycerides 79 mg/dL (<=150); VLDL CHOLESTEROL 15.8 mg/dL
== END 2024-12-10 09:58 | disposition home or self-care (01) ==
LOC: LAB 10:00
PROVIDERS: PCP Nurse Practitioner; Visit Provider Nurse Practitioner
DX: K21.9 Gastro-esophageal reflux disease without esophagitis (principal); E55.9 Vitamin D deficiency, unspecified; E78.2 Mixed hyperlipidemia; E03.9 Hypothyroidism, unspecified
CPT/HCPCS: 36415; 80053; 80061; 81003; 82306; 84439; 84443; 85025

== ENCOUNTER 2025-03-16 00:31 | Emergency (ER) | payer MEDICARE, MEDICAID, SELFPAY ==
--- OUTSIDE RECORDS SUMMARY | 2012-11-08 06:33 | XMS_ITS | Continuity of Care Document ---
Author Organization [facility] Address [address] [place] [address] Phone Care Team Providers Care Fire Extinguisher Technician Name Role Phone Unavailable Unavailable Unavailable Allergies, Adverse Reactions, Alerts Substance Reaction Status Criticality codeine Active No Information Medications Medication Instructions Dosage Effective Dates (start - stop) Status Comments Imitrex 50 mg tablet 2 at onset of OSUNA, then one in 2 hours prn - Active DRUG_ID: [id number] DRUG_DE SC: IMITREX ORAL TABLET 50 MG clonazepam 0.5 mg tablet 1 Two Times A Day, As Needed (cancel 1 mg dose) - Active DRUG_ID: [id number] DRUG_DE SC: CLONAZEPAM ORAL TABLET 0.5 MG sertraline 50 mg tablet 1 Every Day - Active DRUG_ID: [id number] DRUG_DE SC: SERTRALINE HCL ORAL TABLET 50 MG Ambien 10 mg tablet 1 Every Day At Bedtime - Active DRUG_ID: [id number] DRUG_DE SC: AMBIEN ORAL TABLET 10 MG amitriptyline 25 mg tablet 1 Every Day At Bedtime - Active DRUG_ID: [id number] DRUG_DE SC: AMITRIPTYLINE HCL ORAL TABLET 25 MG Advance Directives Directive Yes / No Effective Date File Name No Information Encounters Encounter Description Practice Location Reason(s) For Visit Diagnoses Date Provider Providers Copied on Encounter Terri Hardwick, [address] [place], [place], [id number] , tel: [phone] [facility] No Information 3 No Information [facility], [address] [place], [id number] , [place] tel: [phone] [facility] No Information 2 Hankins Peter. [address] [place], [address], [place]. tel:[phone] [facility], [address] [place], [place], [id number] , [place] tel: [phone] [facility] No Information 2 Hankins Peter. [address] [place], [address], [place]. tel:[phone] [facility], [address] [place], [place], [id number] , [place] tel: [phone] [facility] No Information 2 Cr Reveles. [address] [place], [address], [place]. tel:[phone] [facility], [address] [place], [place], [id number] , [place] tel: [phone] [facility] No Information 2 Cr Reveles. [address] [place], [address], [place]. tel:[phone] [facility], [address] [place] [place], [id number] , [place] tel: [phone] [facility] DYSPLASIA MODERATE CERVICAL HYACINTH II 2 Formsma Nina. [address] [place], [address], [place]. tel:[phone] [facility], [address] [place] [place], [place], [id number] , [place] tel: [phone] [facility] MIGRAINE HEADACHE TYPE W/O MENTION OF INTRACTABLE 1 Cr Reveles. [address] [place], [address], [place]. tel:[phone] [facility], [address] [place], [id number] , [place] tel: [phone] Historic Immunization Location No Information No Information [facility], [address] [place], [place], [id number] , [place] tel: [phone] [facility] INSOMNIA UNSPECIFIED 1 Felix Reyes. [address] [place], [address], [place]. tel:[phone] [facility], [address] [place], [id number] , [place] tel: [phone] [facility] No Information [address] [facility], [address] [place], [place], [id number] , [place] tel: [phone] [facility] RHINITIS ALLERGIC UNSPECIFIED [address] [facility], [address] [place], [place], [id number] , [place] tel: [phone] [facility] ABUSE ALCOHOL UNSPECIFIEDDIS ORDER BIPOLAR [address] [facility], [address] [place], [place], [id number] , tel: [phone] [facility] ANXIETYTOBACCO USE DISORDER UNSPECIFIED [address] [facility], [address] [place], [place], [id number] , [place] tel: [phone] [facility] PAIN CHEST PRECORDIAL SUBSTERNALHYPE RLIPIDEMIA NOCDEPRESSION ANXIETY,REACTI VE,DYSTHYMIC DISORDERABNORM AL ELECTROCARDIOG BECCA EKGABNORMAL STRESS TEST 8 Felix Reyes. [address] [place], [address], [place]. tel:[phone] Family History Family Member Type Diagnosis Age At Onset No Information Immunizations Vaccine Date Status Comments Influenza Vaccine administered Source: Ne w Immunization Record PPSV23 administered Source: New Imm unization Record TDAP administered Source: New Imm unization Record Payers Payer name Insurance type Covered constitution party ID Authoriza tion(s) No Information Social History Type Description Quantity Date Captured Comments Sex Female Smoking Status No Information Chief Complaint And Reason For Visit No Information Reason For Referral Reason For Referral No Information History Of Present Illness Encounter Date Complaint History Of Prese nt Illness No Information Functional Status Date Functional Assessmen t No Information Instructions Date Instruction Additional Infor mation No Information Assessments Type Assessment Date No Information Patient Care Teams Name Effective Dates (start - stop) Status Members No Information
--- OUTSIDE RECORDS SUMMARY | 2024-12-11 10:15 | XMS_ITS ---
Author Organization [facility] vices Address [address] [place], [place] [id number] Care Team Providers Care Gate Attendant Name Role Phone Duyen Hernández Unavailable [phone] Shauna Beckett Unavailable [phone] REASON FOR VISIT 1 Year Recall (A) (71) Social History Sex Assigned At : Social History Observation Description Sex Assigned At Female Encounters Encounter Location Date Provider Diagnosis [facility] [address] [place], [place] [id number] 12/11/2024 Shauna Beckett Plan Of Treatment No Information Progress Notes * Pramod MEYERSieDOB: (69 yo F)Acc No.[id number]:12/11/2024 Patient: uLcille MARIA Provider: Clara Beckett DMD :1955 A ge:69 Y S ex:Female Date:12/11/2024 Address:[facility] [address] [facility] Subjective: * Chief Complaints: * 1 . 1 Year Recall (A) (71). * Medical History: Objective: * Vitals: Assessment: Plan: * Treatment: * Billing Information: * Visit Code: * Procedure Codes: * Electronic signature of Chanda Beckett DMD on 03/16/2025 at 12:45 AM EDT Sign off status: Pending * Provider: Clara Beckett DMD Date: 12/11/2024 Generated for Jasoni ng/Falima/eTransmitting on: 03/16/2025 12:45 AM EDT
--- OUTSIDE RECORDS SUMMARY | 2024-12-25 12:00 | XMS_ITS ---
Author Organization [facility] vices Address [address] [address] [place], [place] [address] Care Team Providers Care Transportation Museum Helper Name Role Phone Duyen Hernández Unavailable [phone] Shauna Beckett Unavailable [phone] REASON FOR VISIT Prophy (A)- 69 Social History Sex Assigned At : Social History Observation Description Sex Assigned At Female Encounters Encounter Location Date Provider Diagnosis [facility] [address] [place], [place] [id number] 12/25/2024 Shauna Beckett Plan Of Treatment No Information Progress Notes * Pramod MEYERSieDOB: 4 (69 yo F)Acc No.[id number]:12/25/2024 Patient: Lucille MARIA Provider: Clara Beckett DMD :1955 A ge:69 Y S ex:Female Date:12/25/2024 Address[address] [facility] Subjective: * Chief Complaints: * 1 . Prophy (A)- 71. * Medical History: Objective: * Vitals: Assessment: Plan: * Treatment: * Billing Information: * Visit Code: * Procedure Codes: * Electronic signature of Chanda Beckett DMD on 03/16/2025 at 12:45 AM EDT Sign off status: Pending * Provider: Clara Beckett DMD Date: 12/25/2024 Generated for Jasoni espinoza/Kehinde/eTransmitting on: 0 03/16/2025 12:45 AM EDT
[2025-03-16 00:35] VITALS: BP 126/73; PULSE 90; TEMP 36.5; O2SAT 98; BMI 27.5
--- NOTE | 2025-03-16 00:44 | ED.GENADUL1 ---
HPI HPI - General Adult General Chief complaint: Extremity Injury, Lower Stated complaint: FALL Time Seen by Provider: 03/16/25 00:38 Source: patient, family and other Source information: squad Mode of arrival: ambulance Limitations: other Limitations comment: alcohol intoxication History of Present Illness HPI narrative: patient is poor historian. States she had stop drinking but did have 2 beers tonight. States she has chronic pain of her right knee. States she was on the commode and tried getting off when she fell because of her knee and could not get up. States she is not sure who called 911. Earlier in the day she states she fell and bruised her chin. Denies back pain. Denies extremity numbness or weakness. No complaint of hip or abdominal pain Related Data Home Medications ?Medication ?Instructions ?Recorded ?Confirmed cetirizine 10 mg tablet 10 mg PO DAILY 03/16/25 03/16/25 divalproex 250 mg tablet,extended 250 mg PO DAILY 03/16/25 03/16/25 release 24 hr divalproex 500 mg tablet,extended 500 mg PO HS 03/16/25 03/16/25 release 24 hr duloxetine 30 mg capsule,delayed 30 mg PO DAILY 03/16/25 03/16/25 release fluticasone propionate 50 1 spray intranasal DAILY 03/16/25 03/16/25 mcg/actuation nasal spray,suspension levothyroxine 25 mcg tablet 25 mcg PO DAILY 03/16/25 03/16/25 quetiapine 25 mg tablet 25 mg PO DAILY 03/16/25 03/16/25 quetiapine 50 mg tablet 50 mg PO HS 03/16/25 03/16/25 Allergies Allergy/AdvReac Type Severity Reaction Status Date / Time No Known Drug Allergies Allergy Verified 03/16/25 00:38 Opioid HPI Opioid Management Most Recent Opioid Data: Last Pain Scale 5 Today, 00:42 Ur Phencyclidine Scrn, (NEGATIVE) Negative Today, 01:18 Review of Systems ROS Status of ROS unobtainable due to mental status PFSH PFSH Social History Little interest or pleasure in doing things: not at all Feeling down, depressed, or hopeless: not at all Exam Constitutional Vital Signs, click to edit/add: Last Vital Signs Temp 97.7 F 03/16/25 00:35 Pulse 90 03/16/25 00:35 Resp 17 03/16/25 00:35 BP 126/73 03/16/25 00:35 Pulse Ox 98 03/16/25 00:35 O2 Del Method Room Air 03/16/25 00:35 Common normals: oriented x3, alert and well nourished [facility] Face and sinus images:  1. mild swelling Eye Common normals: EOMs intact bilaterally Chest Common normals: inspection of chest normal Respiratory Common normals: normal respiratory effort, no retractions, no use of accessory muscles and clear to auscultation bilaterally Cardio Common normals: regular rate, regular rhythm, S1 normal heart sound and S2 normal heart sound GI Common normals: Normal to inspection, nondistended, normoactive bowel sounds present, soft to palpation and non-tender Extremity Other: right knee enlarged compared to the left but is not swollen or erythematous or ecchymotic Neuro Common normals: oriented x3, CN's II-XII intact bilaterally, moves all extremities and no focal motor deficits Psych Appearance: grossly normal Course Vital Signs Vital signs: Vital Signs Temperature 97.7 F 03/16/25 00:35 Pulse Rate 90 03/16/25 00:35 Respiratory Rate 17 03/16/25 00:35 Blood Pressure 126/73 03/16/25 00:35 Pulse Oximetry 98 03/16/25 00:35 Oxygen Delivery Method Room Air 03/16/25 00:35 Temperature 97.7 F 03/16/25 00:35 Pulse Rate 90 03/16/25 00:35 Respiratory Rate 17 03/16/25 00:35 Blood Pressure 126/73 03/16/25 00:35 Pulse Oximetry 98 03/16/25 00:35 Oxygen Delivery Method Room Air 03/16/25 00:35 Medical Decision Making MDM Narrative Medical decision making narrative: patient presents from home after she fell trying to get off the commode. Patient intoxicated. Known arthritis of her right knee. She had fallen earlier in the day and struck her face with resultant contusion right chin. CT facial bones, brain and C-spine without acute changes. Xray of the right knee per my review without acute findings. Patient male partner is here to take her home. She is resting comfortably and discharged in his care to follow up with her doctor next week Lab Data Labs: Lab Results 09/06/25 09/06/25 09/06/25 Range/Units 01:00 01:18 01:54 WBC 8.2 (4.0-11.0) 10^3/uL RBC 5.26 (4.20-5.40) 10^6/uL Hgb 14.4 (12.0-16.0) g/dL Hct 42.8 (36.0-48.0) % MCV 81.4 (81.0-99.0) fL MCH 27.4 (26.7-34.0) pg MCHC 33.6 (29.9-35.2) g/dL RDW 14.9 (11.0-15.0) % Plt Count 178 (150-450) 10^3/uL MPV 11.5 (9.5-13.5) fL Neut % (Auto) 54.7 (43.0-75.0) % Lymph % (Auto) 35.0 (20.5-60.0) % Gilmer % (Auto) 8.7 (1.7-12.0) % Eos % (Auto) 0.6 L (0.9-7.0) % Baso % (Auto) 0.4 (0.2-2.0) % Neut # (Auto) 4.5 (1.4-6.5) 10^3/uL Lymph # (Auto) 2.9 (1.2-3.8) 10^3/uL Gilmer # (Auto) 0.7 (0.3-0.8) 10^3/uL Eos # (Auto) 0.1 (0.0-0.7) 10^3/uL Baso # (Auto) 0.0 (0.0-0.1) 10^3/uL Abs Immat Gran (auto) 0.05 H (0.00-0.03) 10^3/uL Imm/Tot Granulo (auto) 0.6 H (0.0-0.5) % Sodium 143 (136-145) mmol/L Potassium 4.5 (3.5-5.1) mmol/L Chloride 106 (98-107) mmol/L Carbon Dioxide 23.2 (21.0-32.0) mmol/L Anion Gap 18.3 BUN 14.0 (7.0-18.0) mg/dL Creatinine 0.97 (0.55-1.02) mg/dL Est GFR ( Amer) >60 (>=60 mL/min/1.73m^2) Est GFR (Non-Af Amer) 57 L (>=60 mL/min/1.73m^2) BUN/Creatinine Ratio 14.4 Glucose 94 (74-106) mg/dL Calcium 9.1 (8.5-10.1) mg/dL Total Bilirubin 0.2 (0.2-1.0) mg/dL AST 19 (15-37) U/L ALT 21 (14-59) U/L Alkaline Phosphatase 71 (46-116) U/L Troponin I High Sens 5.5 (4.0-51.3) pg/mL Total Protein 6.8 (6.4-8.2) g/dL Albumin 3.4 (3.4-5.0) g/dL Globulin 3.4 g/dL Albumin/Globulin Ratio 1.0 Urine Color Lt. yellow (YELLOW) Urine Clarity Clear (CLEAR) Urine pH 6.0 (5.0-9.0) Ur Specific [place] <=1.005 A (1.005-1.025) Urine Protein Negative (NEG/TRACE) mg/dL Urine Glucose (UA) Negative (NEGATIVE) mg/dL Urine Ketones Negative (NEGATIVE) mg/dL Urine Occult Blood Negative (NEGATIVE) Urine Nitrite Negative (NEGATIVE) Urine Bilirubin Negative (NEGATIVE) Urine Urobilinogen 0.2 (0.2-1.0) EU/dL Ur Leukocyte Esterase Negative (NEGATIVE) Urine RBC None seen (0-2) #/HPF Urine WBC 0-2 A (NONE SEEN) #/HPF Ur Squamous Epith Cells Rare (NONE/RARE) #/LPF Urine Crystals None seen (None Seen) #/HPF Urine Bacteria Trace A (NONE SEEN) #/HPF Urine Casts None seen (NONE SEEN) #/LPF Urine Mucus None seen (NONE SEEN) Ur Culture Indicated? No Urine Opiates Screen Negative (NEGATIVE) Ur Buprenorphine Scrn Negative (NEGATIVE) Ur Oxycodone Screen Negative (NEGATIVE) Urine Methadone Screen Negative (NEGATIVE) Ur Barbiturates Screen Negative (NEGATIVE) U Tricyclic Antidepress Positive A (NEGATIVE) Ur Phencyclidine Scrn Negative (NEGATIVE) Ur Amphetamines Screen Negative (NEGATIVE) U Methamphetamines Scrn Negative (NEGATIVE) U Benzodiazepines Scrn Negative (NEGATIVE) Urine Cocaine Screen Negative (NEGATIVE) U Cannabinoids Screen Negative (NEGATIVE) Ethanol Quant 128 mg/dL Discharge Plan Discharge Chief Complaint: Extremity Injury, Lower Clinical Impression: Contusion of face, Alcohol intoxication, Arthritis of knee, right Patient Disposition: Home, Self-Care Prescriptions / Home Meds: No Action quetiapine 25 mg tablet 25 mg PO DAILY cetirizine 10 mg tablet 10 mg PO DAILY levothyroxine 25 mcg tablet 25 mcg PO DAILY divalproex 500 mg tablet extended release 24 hr 500 mg PO HS fluticasone propionate 50 mcg/actuation spray,suspension 1 spray INTRANASAL DAILY divalproex 250 mg tablet extended release 24 hr 250 mg PO DAILY duloxetine 30 mg capsule,delayed release(DR/EC) 30 mg PO DAILY quetiapine 50 mg tablet 50 mg PO HS Print Language: Gibraltarian Instructions: Osteoarthritis (ED), Alcohol Intoxication (ED), Facial Contusion (ED) Additional Instructions: follow up with your doctor next week Referrals: Cesia Acosta NP [Primary Care Provider, Family Practice] - 1 week Discharge Date/Time: 03/16/25 06:54
--- OUTSIDE RECORDS SUMMARY | 2025-03-16 00:44 | XMS_ITS | Clinical Summary ---
Author Organization [facility] Address [address] [place] [address] Care Team Providers Care Roll Slicing Machine Tender Name Role Phone Cesia Acosta NP Unavailable [phone] Jordi Resendiz MD Primary Care Provider [phone] Cesia Acosta ADOPTION MANAGER Unavailable [phone] Allergies Active Allergy Reactions Criticality Noted Date Comments Codeine GI intolerance 08/10/2023 Medications divalproex (Depakote ER) 500 MG 24 hr tablet Take 1 tablet by mouth at bedtime 05/13/20 23 Active divalproex (Depakote ER) 250 MG 24 hr tablet Take 1 tablet by mouth in the morning. 05/19/20 23 Active DULoxetine (Cymbalta) [address] capsule Take 1 capsule by mouth in the morning. 05/24/20 23 Active QUEtiapine (SEROquel) 50 MG tablet Take 1 tablet by mouth at bedtime 05/24/20 23 Active DULoxetine (Cymbalta) [address] capsule Take 30 mg by mouth Daily 09/20/19 24 Active Multiple Vitamin (multivitamin) tablet Take 1 tablet by mouth Daily Active ezetimibe (Zetia) 10 MG tabletIndications :Mixed hyperlipidemia Take 1 tablet (10 mg) by mouth Daily 90 tablet 12/11/19 25 Active levothyroxine (Synthroid, Levoxyl) 25 MCG tabletIndications :Primary hypothyroidism Take 1 tablet (25 mcg) by mouth in the morning. Take before meals. 90 tablet 01/11/20 25 2024 Active cetirizine (ZyrTEC) 10 MG tabletIndications :Environmental and seasonal allergies Take 1 tablet (10 mg) by mouth Daily 90 tablet 1 02/26/20 25 2024 Active fluticasone (Flonase) 50 MCG/ACT nasal sprayIndications: Environmental and seasonal allergies ADMINISTER 2 SPRAYS INTO EACH NOSTRIL DAILY SHAKE GENTLY. AFTER USE, CLEAN TIP AND REPLACE CAP. 16 mL 2 03/11/20 Active cetirizine (ZyrTEC) 10 MG tabletIndications :Environmental and seasonal allergies Take 1 tablet (10 mg) by mouth Daily 30 tablet 2 12/06/19 25 2024 Discontinued fluticasone (Flonase) 50 MCG/ACT nasal sprayIndications: Environmental and seasonal allergies Administer 2 sprays into each nostril Daily Shake gently. Before first use, prime pump. After use, clean tip and replace cap. 16 g 2 12/06/19 25 2024 Discontinued Active Problems Problem Noted Date Diagnosed Date Environmental and seasonal allergies 12/05/2024 Assessment & Plan (12/05/2024 5:30 PM EDT): Sxs likely to be allergy related, try anti histamine as well as nasal steroids Encounter for subsequent [facility] wellness visit (AWV) in Medicare patient 12/05/2024 [...] wi th single episode, in partial remission 10/12/2023 Assessment & Plan (12/05/2024 5:31 PM [...] Encounters Date Type Department Care Team Description 03/11/2025 [facility]ill [facility] [address] [place] [phone] Cesia Acosta NP Environmental and seasonal allergies 02/25/2025 Refill [facility] [address] [place] [address] Cesia Acosta NP Environmental and seasonal allergies 01/09/2025 Refill [facility] [address] [place] [address] Cesia Acosta NP Primary hypothyroidism from Last 3 Months Social History Tobacco [...] 10/12/2023 2:32 PM EDT Plan of Treatment Health Maintenance Due Date Last Done Comments CT Colonography 1955 Colonoscopy 1955 Colorectal Cancer Screening 1955 FIT-DNA 1955 FIT 1955 FOBT 1955 Sigmoidoscopy 1955 Pneumococcal Vaccine: 65+ Ye ars (1 of 2 - PCV) 1972 Mammogram 1993 Influenza Vaccine (#1) 2025 Medicare Annual Wellness (AWV) 12/05/2025 12/05/2024 , 12/05/2024 Insurance MEDICARE MEDICAID [place] Care Teams Roll Slicing Machine Tender Relationship Specialty Start Date End Date Jordi Resendiz MD PCP - General Family Medicine 08/10/23 Cesia Acosta NP [address] [place] [address] PCP - ACO Reach 08/17/24 Cesia Acosta NP Nurse Practitioner Family Medicine 08/10/23
--- OUTSIDE RECORDS SUMMARY | 2025-03-16 00:44 | XMS_ITS | Encounter Summary ---
Author Organization [facility] Address [address] [place] [address] Care Team Providers Care Solid Plasterer Name Role Phone Cesia Acosta DIRECTOR INVESTMENT BANKING Unavailable [phone] Jordi Resendiz MD Primary Care Provider [phone] Cesia Acosta DIRECTOR INVESTMENT BANKING Unavailable [phone] Reason for Visit * Reason Comments Med Refill Encounter Details Date Type Department Care Team (Late st Contact Info) Description 03/11/2025 [facility] [address] [facility] [facility] [place] [address] Cesia Acosta DIRECTOR INVESTMENT BANKING [address] [facility] [place] [address] Environmental and seasonal allergies Social History Tobacco Use Types Packs/Day Years [...] as of this encounter Plan of Treatment Not on file documented as of this encounter Visit Diagnoses Diagnosis Environmental and seasonal allergies documented in this encounter Additional Health Concerns Assessment Noted Time PHQ-9 Depression Total Score: 8 12/06/19 25 3:01 PM EDT documented as of this encounter Care Teams Solid Plasterer Relationship Specialty Start Date End Date Jordi Resendiz MD PCP - General Family Medicine 08/10/23 Cesia Acosta NP [address] [place] [address] PCP - ACO Reach 08/17/24 Cesia Acosta NP Nurse Practitioner Family Medicine 08/10/23 documented as of this encounter
--- OUTSIDE RECORDS SUMMARY | 2025-03-16 00:45 | XMS_ITS | Patient Health Record ---
Author Organization [facility] vices Address [address] [place], [place] [id number] Care Team Providers Care Counterintelligence Specialist Name Role Phone Duyen Hernández Unavailable [phone] Carl Crockettcarlos a Unavailable [phone] Shauna Beckett Unavailable [phone] Allergies Allergen (clinical drug ingredient) Drug/Non Drug Allergy documented on EMR Reaction Allergy Type Onset Date Status codeine Codeine Unknown Drug Allergy Active Reason For Referral No Information Medications Medication SIG (Take, Route, Frequency, Duration) Notes Start Date End Date Status QUEtiapine Fumarate Not-Taking DULoxetine HCl 30 MG Oral; Duration: 30 Days Active Levothyroxine Sodium Active Divalproex Sodium ER Active DULoxetine HCl Activ e SEROquel Active Social History Tobacco Use: Social History Observation Description Date Details (start date - stop date) Current Smoker NA - NA Sex Assigned At : Social History Observation Description Sex Assigned At Female Tobacco Control (Standard) Question Answer Notes Tobacco use: Current smoker How often do you smoke cigarettes? Every day How many cigarettes a day do you smoke? 5 or les s Problems Problem Type SNOMED Code ICD Code Onset Dates Problem Status W/U Status Risk Notes Problem Tobacco user (353594969) Cigarette nicotine dependence without complication (F17.210) Active confirmed Problem Body mass index 25-29 - overweight (825070496) BMI 26.0-26.9,adult (Z68.26) Active confirmed Vital Signs Heart Rate 75 /min 03/15/2025 Blood pressure diastolic 73 mm Hg 03/15/2025 Height-cm 162.56 cm 03/15/2025 Weight-kg 68.95 kg 03/15/2025 Height 5'4 in 03/15/2025 Blood pressure systolic 117 mm Hg 03/15/2025 Weight 152 lbs 03/15/2025 BMI 26.09 kg/m2 03/15/2025 Encounters Encounter Location Date Provider Diagnosis [facility] [address] [place], [place] [id number] 12/11/2024 Shauna Beckett Encounter for scre ening for dental disorders Z13.84 ; Dental caries into dentine K02.62 and Encounter for dental examination and cleaning with abnormal findings Z01.21 [facility] [address] [place], [place] [id number] 01/10/2025 Shauna Beckett BMI 26.0-26.9,adul t Z68.26 ; Encounter for dental examination and cleaning with abnormal findings Z01.21 ; Dietary counseling Z71.3 ; Exercise counseling Z71.82 and Cigarette nicotine dependence without complication F17.210 [facility] [address] [place], [place] [id number] 03/15/2025 Duyen Hernández Cigarette nicotine dependence without complication F17.210 and Dental caries into dentine K02.62 Assessments Encounter Date Diagnosis (ICD Code) Assessment Notes Treatment Notes Treatment Clinical Notes Section Notes 03/15/2025 Cigarette nicotine dependence without complication (ICD-10 - F17.210) Patient provided with [phone] phone line. 12/11/2024 Encounter for screening for dental disorders (ICD-10 - Z13.84) 01/10/2025 BMI 26.0-26.9,adult (ICD-10 - Z68.26) 01/10/2025 Encounter for dental examination and cleaning with abnormal findings (ICD-10 - Z01.21) 12/11/2024 Dental caries into dentine (ICD-10 - K02.62) 03/15/2025 Dental caries into dentine (ICD-10 - K02.62) 12/11/2024 Encounter for dental examination and cleaning with abnormal findings (ICD-10 - Z01.21) 01/10/2025 Dietary counseling (ICD-10 - Z71.3) 01/10/2025 Exercise counseling (ICD-10 - Z71.82) 01/10/2025 Cigarette nicotine dependence without complication (ICD-10 - F17.210) Patient provided with [phone] phone line. Plan Of Treatment No Information Insurance Providers Payer Name Payer Address Payer Phone Subscriber Number Group Number Insured Name Patient Relationship to Insured Coverage Start Date Coverage End Date DMedicai d [address] [place], [place] [id number] Luigi Lucille Self - patient is the insured 2 Medical (General) History Medical History History ICD Code Hypothyroidism Surgical History Surgery Date(Month/Year) Cataracts Surgery (both) 2019
--- OUTSIDE RECORDS SUMMARY | 2025-03-16 00:45 | XMS_ITS | Encounter Summary ---
Author Organization [facility] Address [address] [place] [address] Care Team Providers Care Assembler Corncob Pipes Name Role Phone Cesia Acosta HAND CHAIN MAKER Unavailable [phone] Jordi Resendiz MD Primary Care Provider [phone] Cesia Acosta HAND CHAIN MAKER Unavailable [phone] Encounter Details Date Type Department Care Team (Late st Contact Info) Description 09/27/2023 Orders Only [facility] [address] [place] [address] Cesia Acosta NP [address] [place] [address] Social History Tobacco Use Types Packs/Day Years Used Date Smoking Tobacco: Every Day Cigarettes Comments Unknown Sex and Gender Information Value Date Recorded Sex Assigned at Not on file Legal Sex Female 8:35 PM EDT Gender Identity Not on file Sexual Orientation Not on file documented as of this encounter Plan of Treatment Not on file documented as of this encounter Procedures Procedure Name Priority Date/Time Associated Diagnosis Comments SCANNED LABS Routine 09/27/2023 1:20 PM EDT documented in this encounter Results * SCANNED LABS (09/27/2023 1:20 PM EDT) Cesia Acosta HAND CHAIN MAKER LAB CHG PERFORMABLES Final Resu lt documented in this encounter Visit Diagnoses Not on filedocumented in this encounter Care Teams Assembler Corncob Pipes Relationship Specialty Start Date End Date Jordi Resendiz MD PCP - General Family Medicine 08/10/23 Cesia Acosta NP [address] [place] [address] PCP - ACO Reach 08/17/24 Cesia Acosta NP Nurse Practitioner Family Medicine 08/10/23 documented as of this encounter
--- OUTSIDE RECORDS SUMMARY | 2025-03-16 00:45 | XMS_ITS | Encounter Summary ---
Author Organization [facility] Address [address] [place] [address] Care Team Providers Care Brewmaster Name Role Phone Cesia Acosta CORN DETASSELER Unavailable [phone] Jordi Resendiz MD Primary Care Provider [phone] Cesia Acosta CORN DETASSELER Unavailable [phone] Reason for Visit * Reason Comments Med Refill Encounter Details Date Type Department Care Team (Late st Contact Info) Description 05/06/2024 Refill [facility] [address] [place] [address] Cesia Acosta CORN DETASSELER [address] [facility] [place] [address] Mixed hyperlipidemia ; Primary hypothyroidism Social History Tobacco Use Types Packs/Day Years [...] as of this encounter Visit Diagnoses Diagnosis Mixed hyperlipidemia Mixed hyperlipidemia Primary hypothyroidism Unspecified hypothyroidism documented in this encounter Care Teams Brewmaster Relationship Specialty Start Date End Date Jordi Resendiz MD PCP - General Family Medicine 08/10/23 Cesia Acosta NP [address] [place] [address] PCP - ACO Reach 08/17/24 Cesia Acosta NP Nurse Practitioner Family Medicine 08/10/23 documented as of this encounter
--- OUTSIDE RECORDS SUMMARY | 2025-03-16 00:45 | XMS_ITS | Clinical Summary ---
Author Organization [facility] Address [address] [place] [address] Care Team Providers Care Wash House Worker Name Role Phone Cesia Acosta Jenna SAMUEL Primary Care Provider [phone] Allergies Active Allergy Reactions Criticality Noted Date [...] of 2) 09/11/2003 Bone Density Screening 2018 Advance Directive Discussion 07/11/2024 Influenza Vaccine (#1) 2025 RSV Vaccine (1 - 1-dose 75+ series) 2028 Insurance MEDICARE Member Subscriber Plan / Payer (Ef fective 2013-Present) Name:Lucille Meyers Member ID:[id number] Relation to Subscriber:Self Name:Lucille Meyers Subscriber ID:[id number] Payer ID:Not on file Group ID:Not on file Type:Medicare Address: [facility] [place] [id number] [place]ICA[place] Care Teams Wash House Worker Relationship Specialty Start Date End Date Cesia Acosta CNP PCP - General Family Medicine 11/27/15
--- OUTSIDE RECORDS SUMMARY | 2025-03-16 00:45 | XMS_ITS | Encounter Summary ---
Author Organization [facility] Address [address] [place] [address] Care Team Providers Care Granite Polisher Apprentice Name Role Phone eCsia Acotsa CRISIS INTERVENTION COUNSELOR Unavailable [phone] Jordi Resendiz MD Primary Care Provider [phone] Cesia Acosta CRISIS INTERVENTION COUNSELOR Unavailable [phone] Encounter Details Date Type Department Care Team (Late st Contact Info) Description 08/21/2023 Abstract [facility] [address] [place] [id number] Cesia Acosta NP [address] [place] [address] Social History Tobacco Use Types Packs/Day Years [...] on filedocumented in this encounter Care Teams Granite Polisher Apprentice Relationship Specialty Start Date End Date Jordi Resendiz MD PCP - General Family Medicine 08/10/23 Cesia Acosta NP [address] [place] [id number] PCP - ACO Reach 08/17/24 Cesia Acosta NP Nurse Practitioner Family Medicine 08/10/23 documented as of this encounter
--- OUTSIDE RECORDS SUMMARY | 2025-03-16 00:45 | XMS_ITS | Encounter Summary ---
Author Organization [facility] Address [address] [place] [address] Care Team Providers Care Interactive Media Director Name Role Phone Cesia Acosta HOME HOUSEKEEPER Unavailable [phone] Jordi Resendiz MD Primary Care Provider [phone] Cesia Acosta HOME HOUSEKEEPER Unavailable [phone] Reason for Visit * Reason Comments Med Refill Encounter Details Date Type Department Care Team (Late st Contact Info) Description 09/21/2024 Refill [facility] [address] [place] [address] Cesia Acosta NP [address] [facility] [place] [address] Primary hypothyroidism Social History Tobacco Use Types [...] this encounter Visit Diagnoses Diagnosis Primary hypothyroidism Unspecified hypothyroidism documented in this encounter Care Teams Interactive Media Director Relationship Specialty Start Date End Date Jordi Resendiz MD PCP - General Family Medicine 08/10/23 Cesia Acosta NP [address] [facility] [place] [address] PCP - ACO Reach 08/17/24 Cesia Acosta NP Nurse Practitioner Family Medicine 08/10/23 documented as of this encounter
--- OUTSIDE RECORDS SUMMARY | 2025-03-16 00:46 | XMS_ITS | CCD ---
Author Organization [facility] Care Team Providers Care Deli Clerk Name Role Phone Karan Bennett Physician Unavailable NON, STAFF Primary Care Physician Unavailab Karan Quinn Admitting Physician Unavailable Karan Lira Attending Physician Unavailable AICHHOLZ, LIZZIE CESIA Admitting Unavailable AICHHOLZ, WALLPAPERER HELPER CESIA Attending Unavailable AICHHOLZ, WALLPAPERER HELPER CESIA Primary Care Unavailable AICHHOLZ, WALLPAPERER HELPER CESIA Consulting Unavailable AICHHOLZ, WALLPAPERER HELPER CESIA Admitting Unavailable AICHHOLZ, WALLPAPERER HELPER CESIA Attending Unavailable AICHHOLZ, WALLPAPERER HELPER CESIA Primary Care Unavailable SHANE ROMERO Admitting Unavailable SHANE ROMERO Attending Unavailable AICHHOLZ, WALLPAPERER HELPER CESIA Primary Care Unavailable SHANE ROMERO Consulting Unavailable AICHHOLZ, WALLPAPERER HELPER CESIA Admitting Unavailable AICHHOLZ, WALLPAPERER HELPER CESIA Attending Unavailable AICHHOLZ, WALLPAPERER HELPER CESIA Primary Care Unavailable AICHHOLZ, WALLPAPERER HELPER CESIA Consulting Unavailable BRAD WARD Admitting Unavailable BRAD WARD Attending Unavailable AICHHOLZ, WALLPAPERER HELPER CESIA Primary Care Unavailable BRAD WARD Consulting Unavailable Aichholz NAILING MACHINE FEEDER, Cesia Unavailable Jordi Resendiz MD Primary Care Provider Aichholz NAILING MACHINE FEEDER, Cesia Unavailable SHANE ROMERO Attending Unavailable JODY MARTINEZ Referring Unavailable AICHHOLZ, CESIA Attending Unavailable Aurelio Stephens Attending Unavailab Aurelio Prasad Admitting Unavailab le SAIDA STAFF Primary Care Unavailable Aichholz NAILING MACHINE FEEDER, Cesia Unavailable Aichholz NAILING MACHINE FEEDER, Cesia Unavailable Allergies Allergy Classification Reported Allergen(s) Allergy Type Date of Onset Reaction(s) Facility (15 sources) Codeine; Translations: [Codeine] Drug Allergy 3 GI intolerance [facility] Repository (2 sources) Ragweed pollen; Translations: [ragweed pollen] Allergy to Substance 9 Sneezing [facility] Repository Medications Current Medications Medication Drug Class(es) Dates Sig (Normalized) Sig (Original) cetirizine hydrochloride 10 mg oral tablet (8 sources) Histamine-1 Receptor Antagonist Start: 12-05-2024 End: 05-26-2025 take 1 tablet by mouth once daily cetirizine (ZyrTEC) 10 MG tablet Indications: Environmental and seasonal allergies Take 1 tablet (10 mg) by mouth Daily 90 tablet 1 02/25/2025 05/26/2025 Active DULoxetine 30 mg delayed release oral capsule (20 sources) Serotonin and Norepinephrine Reuptake Inhibitor Start: 09-20-2023 take 1 capsule by mouth once daily DULoxetine (Cymbalta) [address] capsule Take 30 mg by mouth Daily 09/20/2023 Active Start: 05-24-2023 take 1 capsule by mo uth in the morning DULoxetine (Cymbalta) [address] capsule Take 1 capsule by mouth in the morning. 05/24/2023 Active Start: 12-20-2018 End: 02-02-2019 take 30 mg by mouth once daily Duloxetine 30 MG Oral D aily February 02, 2019 Active Start: 12-20-2018 End: 02-02-2019 take 60 mg by mouth at bedtime Duloxetine 60 MG Oral B edtime February 02, 2019 Active ezetimibe 10 mg oral tablet (13 sources) Dietary Cholesterol Absorption Inhibitor Start: 06-18-2024 End: 03-10-2025 take 1 tablet by mouth once daily ezetimibe (Zetia) 10 MG tablet Indications: Mixed hyperlipidemia Take 1 tablet (10 mg) by mouth Daily 90 tablet 12/10/2024 Active fluticasone propionate 0.05 mg/actuat metered dose nasal spray (8 sources) Corticosteroid Start: 03-11-2025 take 2 spray(s) nasal route once daily fluticasone (Flonase) 50 MCG/ACT nasal spray Indications: Environmental and seasonal allergies ADMINISTER 2 SPRAYS INTO EACH NOSTRIL DAILY SHAKE GENTLY. AFTER USE, CLEAN TIP AND REPLACE CAP. 16 mL 2 03/11/2025 Active Start: 12-05-2024 End: 03-11-2025 take 2 spray(s) nasal route once daily fluticasone (Flonase) 50 MCG/ACT nasal spray Indications: Environmental and seasonal allergies Administer 2 sprays into each nostril Daily Shake gently. Before first use, prime pump. After use, clean tip and replace cap. 16 g 2 12/05/2024 03/11/2025 Discontinued levothyroxine sodium 0.025 mg oral tablet (16 sources) l-Thyroxine Start: 06-18-2024 End: 04-10-2025 take 1 tablet by mouth before mealtime levothyroxine (Synthroid, Levoxyl) 25 MCG tablet Indications: Primary hypothyroidism Take 1 tablet (25 mcg) by mouth in the morning. Take before meals. 90 tablet 01/10/2025 04/10/2025 Active Start: 12-20-2018 take 25 ug by mouth once daily Levothyroxine 25 MCG Oral Daily December 20, 2018 Active Multiple Vitamin (multivitamin) tablet (12 sources) take 1 tablet by mouth once daily Multiple Vitamin (multivitamin) tablet Take 1 tablet by mouth Daily Active QUEtiapine 50 mg oral tablet (16 sources) Atypical Antipsychotic Start: 023 take 1 tablet by mouth at bedtime QUEtiapine (SEROquel) 50 MG tablet Take 1 tablet by mouth at bedtime 05/24/2023 Active Start: 02-02-2019 take 12.5-25 mg by m outh twice daily as needed for anxiety Quetiapine 12.5 - 25 MG Oral Twice daily PRN For Anxiety February 02, 2019 Active Start: 12-20-2018 take 50 mg by mouth once daily Quetiapine 50 MG Oral Daily December 20, 2018 Active 24 hr divalproex sodium 250 mg extended release oral tablet (20 sources) Mood Stabilizer, Anti-epileptic Agent Start: 05-19-2023 take 1 tablet by mouth every twenty-four hours in the morning divalproex (Depakote ER) 250 MG 24 hr tablet Take 1 tablet by mouth in the morning. 05/19/2023 Active Start: 05-13-2023 take 1 tablet by erma th every twenty-four hours at bedtime divalproex (Depakote ER) 500 MG 24 hr tablet Take 1 tablet by mouth at bedtime 05/13/2023 Active Start: 02-02-2019 take 250 mg by mouth once gema y Divalproex 250 MG Oral Daily 14 February 02, 2019 Active Start: 12-20-2018 End: 02-02-2019 take 250 mg by mouth once daily in the morning Divalproex 250 MG Oral Every morning January 31, 2019 February 02, 2019 Discontinued Start: 12-20-2018 take 500 mg by mouth at bedtim e Divalproex [Depakote] 500 MG Oral Bedtime December 20, 2018 Active Completed/Discontinued Medications Medication Drug Class(es) Dates Sig (Normalized) Sig (Original) busPIRone hydrochloride 15 mg oral tablet (2 sources) Start: 12-20-2018 End: 02-02-2019 take 15 mg by mouth twice daily Buspirone 15 MG Oral Twice daily December 20, 2018 February 02, 2019 Discontinued famotidine 20 mg oral tablet (2 sources) Histamine-2 Receptor Antagonist Start: 12-21-2018 End: 01-30-2019 take 20 mg by mouth twice daily as needed for gastroesophageal reflux disease Famotidine 20 MG Oral Twice daily PRN For persistent heartburn 30 15 December 21, 2018 Discontinued LORazepam 0.5 mg oral tablet (2 sources) Benzodiazepine Start: 12-21-2018 End: 01-30-2019 Lorazepam 0.5 MG Oral 2-3 TIMES PER DAY PRN For anxiety 60 30 December 21, 2018 January 30, 2019 Discontinued nitrofurantoin, macrocrystals 25 mg / nitrofurantoin, monohydrate 75 mg oral capsule (2 sources) Nitrofuran Antibacterial Start: 02-02-2019 take 100 mg by mouth twice daily at mealtime Nitrofurantoin Monohyd/M-Cryst 100 MG Oral Twice daily with meals 9 February 02, 2019 Active omeprazole 20 mg delayed release oral capsule (2 sources) Proton Pump Inhibitor Start: 12-21-2018 End: 01-30-2019 take 20 mg by mouth twice daily Omeprazole 20 MG Oral Twice daily 60 30 December 21, 2018 Discontinued simvastatin 40 mg oral tablet (2 sources) HMG-CoA Reductase Inhibitor Start: 12-20-2018 take 40 mg by mouth once daily in the evening Simvastatin 40 MG Oral Every evening December 20, 2018 Active terbinafine hydrochloride 10 mg/ml topical cream (2 sources) Allylamine Antifungal Start: 02-02-2019 Terbinafine Hcl 1 APPLIC Topical Twice daily February 02, 2019 Active Problems Active Problems Problem Classification Problem Date Documented Date Episodic/Chronic Alcohol-related disorders (12 sources) Alcohol dependence; Translations: [Alcohol dependence, uncomplicated] Onset: 10-12-2023 10-12-2023 Chronic Anxiety disorders (15 sources) Generalized anxiety disorder; Translations: [Anxiety disorder, unspecified] Onset: 11-18-2021 10-12-2023 Chronic Cataract (5 sources) Age-related nuclear cataract, right eye; Translations: [After-cataract of bilateral eyes] Onset: 11-12-2021 Chronic Disorders of lipid metabolism (19 sources) Mixed hyperlipidemia; Translations: [Pure hypercholesterolemia, unspecified] Onset: 11-18-2021 06-16-2024 Chronic Esophageal disorders (14 sources) Gastroesophageal reflux disease; Translations: [Gastroesophageal reflux disease without esophagitis] Onset: 10-12-2023 10-12-2023 Chronic Mood disorders (16 sources) Major depressive disorder; Translations: [Major depressive disorder, single episode, unspecified] Onset: 04-27-2022 10-12-2023 Chronic Mycoses (1 source) Tinea corporis Episodic Nonspecific chest pain (2 sources) Chest pain Episodic Nutritional deficiencies (18 sources) Vitamin D deficiency, unspecified; Translations: [Vitamin D deficiency] Onset: 12-25-2021 Chronic Other upper respiratory disease (12 sources) Seasonal allergic rhinitis; Translations: [Other seasonal allergic rhinitis] Onset: 10-12-2023 10-12-2023 Chronic Other upper respiratory disease (11 sources) Allergic disposition; Translations: [Other allergic rhinitis] Onset: 12-05-2024 12-05-2024 Chronic Other upper respiratory infections (1 source) Chronic frontal sinusitis Chronic Substance-related disorders (1 source) Nicotine dependence, cigarettes, uncomplicated; Translations: [NICOTINE DEPEND CIGARETTES UNCOMP] Onset: 11-18-2021 Chronic Thyroid disorders (20 sources) Hypothyroidism, unspecified; Translations: [Unspecified acquired hypothyroidism] Onset: 12-29-2021 Chronic Urinary tract infections (1 source) Urinary tract infectious disease Episodic Past or Other Problems Problem Classification Problem Date Documented Da te Episodic/Chronic Acquired foot deformities (12 sources) Bunion; Translations: [Bunion of right foot] Onset: 10-12-2023 10-12-2023 Episodic Conditions associated with dizziness or vertigo (12 sources) Vertigo; Translations: [Dizziness and giddiness] Onset: 10-12-2023 10-12-2023 Episodic Malaise and fatigue (12 sources) Fatigue; Translations: [Other fatigue] Onset: 10-12-2023 10-12-2023 Episodic Mood disorders (7 sources) Mood disorders Onset: 12-05-2024 12-05-2024 Other aftercare (1 source) Other termite control service representative (current) drug therapy; Translations: [OTH SHIP KEEPER CURRENT DRUG THERAPY] Onset: 04-27-2022 Episodic Other diseases of kidney and ureters (12 sources) Abnormal renal function; Translations: [Disorder of kidney and ureter, unspecified] Onset: 10-12-2023 10-12-2023 Episodic Other nutritional; endocrine; and metabolic disorders (12 sources) Overweight; Translations: [Overweight] Onset: 10-12-2023 10-12-2023 Episodic Other screening for suspected conditions (not mental disorders or infectious disease) (14 sources) Patient encounter status; Translations: [Encounter for screening mammogram for malignant neoplasm of breast] Onset: 11-10-2023 11-10-2023 Episodic Residual codes; unclassified (12 sources) Tobacco user; Translations: [Tobacco use] Onset: 10-12-2023 10-12-2023 Episodic Results Test Name Value Interpretation Reference Range Facility ALL CBC WITH AUTO DIFFon BASOPHILS ABSOLUTE AUTO 0.1 [facility] Basophils/100 WBC (Bld) 0.6 % 0.2 - 2.0 % [facility] Eosinophils/100 WBC (Bld) 2 % 0.9 - 7.0 % [facility] Erythrocyte distribution width (RBC) [Ratio] 13.8 % 11.0 - 15.0 % [facility] Hematocrit (Bld) [Volume fraction] 47.6 % 36.0 - 48.0 [facility] [Mass/Vol] 15.3 g/dL 12.0 - 16.0 g/dL [facility] IMMATURE GRANULOCYTES ABS AUTO 0.05 [facility] Immature granulocytes/100 WBC (Bld) 0.5 % 0.0 - 0.5 % [facility] Interpretation and review of laboratory results Abnormal [facility] LYMPHOCYTES ABSOLUTE AUTO 3.9 [facility] Lymphocytes/100 WBC (Bld) 39.3 % 20.5 - 60.0 % [facility] MCH (RBC) [Entitic mass] 27.3 pg 26.7 - 34.0 pg [facility] MCHC (RBC) [Mass/Vol] 32.1 g/dL 29.9 - 35.2 g/dL [facility] MCV (RBC) [Entitic vol] 84.8 fL 81.0 - 99.0 fL [facility] MONOCYTES ABSOLUTE AUTO 1 High [facility] Monocytes/100 WBC (Bld) 9.8 % 1.7 - 12.0 % [facility] NEUTROPHILS ABSOLUTE AUTO 4.8 [facility] Neutrophils/100 WBC (Bld) 47.8 % 43.0 - 75.0 % [facility] Platelet mean volume (Bld) [Entitic vol] 11.6 fL 9.5 - 13.5 fL [facility] EO # 0.2 [facility] PLT 236 [facility] RBC 5.61 High [facility] WBC 10 [facility] CBC AUTO DIFFon 04-26-2022 BASO # 0.1 103/ul Normal 0.0-0.1 [facility] Comment on above: Performed By: #### C BC #### [facility] [address] [place] [address] Dr. Vaibhav Hankins Basophils/100 WBC (Bld) 0.8 % Normal 0.2-2.0 [facility] Comment on above: Performed By: #### C BC #### [facility] [address] [place] [address] Dr. Vaibhav Hankins EO # 0.2 103/ul Normal 0.0-0.7 [facility] Comment on above: Performed By: #### C BC #### [facility] [address] [place] [address] Dr. Vaibhav Hankins Eosinophils/100 WBC (Bld) 2.9 % Normal 0.9-7.0 [facility] Comment on above: Performed By: #### C BC #### [facility] [address] [place] [address] Dr. Vaibhav Hankins Erythrocyte distribution width (RBC) [Ratio] 15.0 % Normal 11.0-15.[address] [facility] Comment on above: Performed By: #### C BC #### [facility] [address] [place] [address] Dr. Vaibhav Hankins Hematocrit (Bld) [Volume fraction] 46.8 % Normal 36.0-48.[address] [facility] Comment on above: Performed By: #### C BC #### [facility] [address] [place] [address] Dr. Vaibhav Hankins Hemoglobin (Bld) [Mass/Vol] 15.0 g/dL Normal 12.0-16.[address] [facility] Comment on above: Performed By: #### C BC #### [facility] [address] [place] [address] Dr. Vaibhav Hankins IG # 0.03 10e3/ul Normal 0.00-0.[address] [facility] Comment on above: Performed By: #### C BC #### [facility] [address] [place] [address] Dr. Vaibhav Hankins IG % 0.4 % Normal 0.0-0.[address] [facility] Comment on above: Performed By: #### C BC #### [facility] [address] [place] [address] Dr. Vaibhav Hankins LYMPH # 3.5 103/ul Normal 1.2-3.[address] [facility] Comment on above: Performed By: #### C BC #### [facility] [address] [place] [address] Dr. Vaibhav Hankins Lymphocytes/100 WBC (Bld) 46.1 % Normal 20.5-60.[address] [facility] Comment on above: Performed By: #### C BC #### [facility] [address] [place] [address] Dr. Vaibhav Hankins MANUAL DIFF REQ NO Normal [facility] Comment on above: Performed By: #### C BC #### [facility] [address] [place] [address] Dr. Vaibhav Hankins MCH (RBC) [Entitic mass] 26.8 pg Normal 26.7-34.0 [facility] Comment on above: Performed By: #### C BC #### [facility] [address] [address] [address] Vaibhav Hankins MCHC (RBC) [Mass/Vol] 32.1 g/dL Normal 29.9-35.[address] [facility] Comment on above: Performed By: #### C BC #### [facility] [address] [place] [address] Dr. Vaibhav Hankins MCV (RBC) [Entitic vol] 83.6 fL Normal 81.0-99.[address] [facility] Comment on above: Performed By: #### C BC #### [facility] [address] [place] [address] Dr. Vaibhav Hankins MONO # 0.7 103/ul Normal 0.3-0.[address] [facility] Comment on above: Performed By: #### C BC #### [facility] [address] [place] [address] Dr. Vaibhav Hankins Monocytes/100 WBC (Bld) 8.7 % Normal 1.7-12.[address] [facility] Comment on above: Performed By: #### C BC #### [facility] [address] [place] [address] Dr. Vaibhav Hankins NEUT # 3.2 103/ul Normal 1.4-6.[address] [facility] Comment on above: Performed By: #### C BC #### [facility] [address] [place] [address] Dr. Vaibhav Hankins Neutrophils/100 WBC (Bld) 41.1 % Critically low 43.0-75.0 [facility] Comment on above: Performed By: #### C BC #### [facility] [address] [place] [address] Dr. Vaibhav Hankins Platelet mean volume (Bld) [Entitic vol] 11.7 fL Normal 9.5-13.5 [facility] Comment on above: Performed By: #### C BC #### [facility] [address] [place] [address] Dr. Vaibhav Hankins PLT 190 103/ul Normal 150-450 [facility] Comment on above: Performed By: #### C BC #### [facility] [address] [address] [address] Vaibhav Hankins RBC 5.60 106/ul Critically high 4.20-5.40 [facility] Comment on above: Performed By: #### C BC #### [facility] [address] [address] [address] Vaibhav Hankins WBC 7.7 103/ul Normal 4.0-11.[address] [facility] Comment on above: Performed By: #### C BC #### [facility] [address] [address] [address] Vaibhav Hankins DEPAKENE/VALPROICon 04-26-20 22 DEPAKENE 40.5 ug/ml Critically low 50.0-100.0 [facility] Comment on above: Performed By: #### G SEGUN, LIPID, LIVER, VALP #### [facility] [address] [address] [address] Vaibhav Hankins FREE T4on 04-26-2022 Free T4 [Mass/Vol] 0.80 ng/dL Normal 0.76-1.46 [facility] Comment on above: Performed By: #### G SEGUN, LIPID, LIVER, VALP #### [facility] [address] [place] [address] Dr. Vaibhav Hankins GLUCOSE BLOODon 04-26-2022 Glucose [Mass/Vol] 92 mg/dL Normal 74-106 [facility] Comment on above: Performed By: #### G SEGUN, LIPID, LIVER, VALP #### [facility] [address] [place] [address] Dr. Vaibhav Hankins LIPID PROFILEon 04-26-2022 CHOL-HDL RATIO NORM SEE BELOW Normal [facility] Comment on above: Result Comment: 3.3 - 4.4 LOW RISK 4.4 - 7.1 AVERAGE RISK 7.1 - 11.0 MODERATE RISK >11.0 HIGH RISK Performed By: #### G SEGUN, LIPID, LIVER, VALP #### [facility] [address] [place] [address] Dr. Vaibhav Hankins Cholesterol [Mass/Vol] 317 mg/dL Critically high <=[address] [facility] Comment on above: Performed By: #### G SEGUN, LIPID, LIVER, VALP #### [facility] [address] [address] [address] Vaibhav Hankins Cholesterol in HDL [Mass/Vol] 91 mg/dL Critically high 40-[address] [facility] Comment on above: Performed By: #### G SEGUN, LIPID, LIVER, VALP #### [facility] [address] [address] [address] Vaibhav Hankins Cholesterol in LDL [Mass/Vol] 212.6 mg/dL Normal [facility] Comment on above: Performed By: #### G SEGUN, LIPID, LIVER, VALP #### [facility] [address] [address] [address] Vaibhav Hankins Cholesterol.total/Ch olesterol in HDL [Mass ratio] 3.5 {ratio} Normal [facility] Comment on above: Performed By: #### G SEGUN, LIPID, LIVER, VALP #### [facility] [address] [address] [address] Vaibhav Hankins HDL NORMAL > or = 60 mg/dl - LOW CARDIOVASCULAR RISK <40 mg/dl - HIGH CARDIOVASCULAR RISK Normal [facility] Comment on above: Performed By: #### G SEGUN, LIPID, LIVER, VALP #### [facility] [address] [address] [address] Vaibhav Hankins LDL CALC NORMAL SEE BELOW Normal [facility] Comment on above: Result Comment: <100 mg/dl OPTIMAL 100 - 129 mg/dl NEAR OR ABOVE OPTIMAL 130 - 159 mg/dl BORDERLINE HIGH 160 - 189 mg/dl HIGH >190 mg/dl VERY HIGH Performed By: #### G SEGUN, LIPID, LIVER, VALP #### [facility] [address] [address] [address] Vaibhav Hankins Triglyceride [Mass/Vol] 67 mg/dL Normal <=[address] [facility] Comment on above: Performed By: #### G SEGUN, LIPID, LIVER, VALP #### [facility] [address] [address] [address] Vaibhav Hankins VLDL CALC 13.4 mg/dL Normal [facility] Comment on above: Performed By: #### G SEGUN, LIPID, LIVER, VALP #### [facility] [address] [address] [address] Vaibhav Hankins LIVER PROFILEon 04-26-2022 Albumin [Mass/Vol] 3.7 g/dL Normal 3.4-5.0 [facility] Comment on above: Performed By: #### G SEGUN, LIPID, LIVER, VALP #### [facility] [address] [address] [address] Vaibhav Hankins Albumin/Globulin [Mass ratio] 1.2 {ratio} Normal [facility] Comment on above: Performed By: #### G SEGUN, LIPID, LIVER, VALP #### [facility] [address] [place] [address] Dr. Vaibhav Hankins ALP [Catalytic activity/Vol] 73 U/L Normal 46-[address] [facility] Comment on above: Performed By: #### G SEGUN, LIPID, LIVER, VALP #### [facility] [address] [address] [address] Vaibhav Hankins ALT [Catalytic activity/Vol] 22 U/L Normal 14-[address] [facility] Comment on above: Performed By: #### G SEGUN, LIPID, LIVER, VALP #### [facility] [address] [address] [address] Vaibhav Hankins AST [Catalytic activity/Vol] 13 U/L Critically low 15-[address] [facility] Comment on above: Performed By: #### G SEGUN, LIPID, LIVER, VALP #### [facility] [address] [address] [address] Vaibhav Hankins BILI, CONJUGATED 0.1 mg/dL Normal 0.0-0.2 [facility] Comment on above: Performed By: #### G SEGUN, LIPID, LIVER, VALP #### [facility] [address] [address] [address] Vaibhav Hankins Bilirubin [Mass/Vol] 0.3 mg/dL Normal 0.2-1.[address] [facility] Comment on above: Performed By: #### G SEGUN, LIPID, LIVER, VALP #### [facility] [address] [place] [address] Dr. Vaibhav Hankins Globulin (S) [Mass/Vol] 3.2 g/dL Normal [facility] Comment on above: Performed By: #### G SEGUN, LIPID, LIVER, VALP #### [facility] [address] [place] [address] Dr. Vaibhav Hankins Protein [Mass/Vol] 6.9 g/dL Normal 6.4-8.2 [facility] Comment on above: Performed By: #### G SEGUN, LIPID, LIVER, VALP #### [facility] [address] [place] [address] Dr. Vaibhav Hankins TSHon 04-26-2022 TSH 4.156 uIU/mL Critically high 0.358-3.740 [facility] Comment on above: Performed By: #### T SH #### [facility] [address] [place] [address] Dr. Vaibhav Hankins VITAMIN D 25 OHon 04-26-2022 VIT D 25-OH 48.0 ng/mL Normal [facility] Comment on above: Performed By: #### G SEGUN, LIPID, LIVER, VALP #### [facility] [address] [place] [address] Dr. Vaibhav Hankins VIT D RANGES SEE BELOW Normal [facility] Comment on above: Result Comment: <20 ng/mL Vit D deficient 20 - <30 ng/mL Vit D insufficient 30 - 100 ng/mL Vit D sufficient >100 ng/mL Potential Toxicity Performed By: #### G SEGUN, LIPID, LIVER, VALP #### [facility] [address] [place] [address] Dr. Vaibhav Hankins CBC AUTO DIFFon 12-25-2021 BASO # 0.1 103/ul Normal 0.0-0.[address] [facility] Comment on above: Performed By: #### G SEGUN, LIPID, LIVER, VALP #### [facility] [address] [place] [address] Dr. Vaibhav Hankins Basophils/100 WBC (Bld) 0.8 % Normal 0.2-2.[address] [facility] Comment on above: Performed By: #### G SEGUN, LIPID, LIVER, VALP #### [facility] [address] [place] [address] Dr. Vaibhav Hankins EO # 0.2 103/ul Normal 0.0-0.[address] [facility] Comment on above: Performed By: #### G SEGUN, LIPID, LIVER, VALP #### [facility] [address] [place] [address] Dr. Vaibhav Hankins Eosinophils/100 WBC (Bld) 3.1 % Normal 0.9-7.0 [facility] Comment on above: Performed By: #### G SEGUN, LIPID, LIVER, VALP #### [facility] [address] [place] [address] Dr. Vaibhav Hankins Erythrocyte distribution width (RBC) [Ratio] 15.0 % Normal 11.0-15.[address] [facility] Comment on above: Performed By: #### G SEGUN, LIPID, LIVER, VALP #### [facility] [address] [place] [address] Dr. Vaibhav Hankins Hematocrit (Bld) [Volume fraction] 46.1 % Normal 36.0-48.[address] [facility] Comment on above: Performed By: #### G SEGNU, LIPID, LIVER, VALP #### [facility] [address] [place] [address] Dr. Vaibhav Hankins Hemoglobin (Bld) [Mass/Vol] 14.9 g/dL Normal 12.0-16.[address] [facility] Comment on above: Performed By: #### G SEGUN, LIPID, LIVER, VALP #### [facility] [address] [place] [address] Dr. Vaibhav Hankins IG # 0.03 10e3/ul Normal 0.00-0.[address] [facility] Comment on above: Performed By: #### G SEGUN, LIPID, LIVER, VALP #### [facility] [address] [place] [address] Dr. Vaibhav Hankins IG % 0.4 % Normal 0.0-0.[address] [facility] Comment on above: Performed By: #### G SEGUN, LIPID, LIVER, VALP #### [facility] [address] [address] [address] Vaibhav Hankins LYMPH # 3.3 103/ul Normal 1.2-3.[address] [facility] Comment on above: Performed By: #### G SEGUN, LIPID, LIVER, VALP #### [facility] [address] [place] [address] Dr. Vaibhav Hankins Lymphocytes/100 WBC (Bld) 42.5 % Normal 20.5-60.[address] [facility] Comment on above: Performed By: #### G SEGUN, LIPID, LIVER, VALP #### [facility] [address] [place] [address] Dr. Vaibhav Hankins MANUAL DIFF REQ NO Normal [facility] Comment on above: Performed By: #### G SEGUN, LIPID, LIVER, VALP #### [facility] [address] [place] [address] Dr. Vaibhav Hankins MCH (RBC) [Entitic mass] 26.7 pg Normal 26.7-34.[address] [facility] Comment on above: Performed By: #### G SEGUN, LIPID, LIVER, VALP #### [facility] [address] [place] [address] Dr. Vaibhav Hankins MCHC (RBC) [Mass/Vol] 32.3 g/dL Normal 29.9-35.[address] [facility] Comment on above: Performed By: #### G SEGUN, LIPID, LIVER, VALP #### [facility] [address] [place] [address] Dr. Vaibhav Hankins MCV (RBC) [Entitic vol] 82.5 fL Normal 81.0-99.[address] [facility] Comment on above: Performed By: #### G SEGUN, LIPID, LIVER, VALP #### [facility] [address] [place] [address] Dr. Vaibhav Hankins MONO # 0.7 103/ul Normal 0.3-0.[address] [facility] Comment on above: Performed By: #### G SEGUN, LIPID, LIVER, VALP #### [facility] [address] [address] [address] Vaibhav Hankins Monocytes/100 WBC (Bld) 9.3 % Normal 1.7-12.[address] [facility] Comment on above: Performed By: #### G SEGUN, LIPID, LIVER, VALP #### [facility] [address] [address] [address] Vaibhav Hankins NEUT # 3.4 103/ul Normal 1.4-6.5 The [facility] Comment on above: Performed By: #### G SEGUN, LIPID, LIVER, VALP #### [facility] [address] [address] [address] Vaibhav Hankins Neutrophils/100 WBC (Bld) 43.9 % Normal 43.0-75.[address] [facility] Comment on above: Performed By: #### G SEGUN, LIPID, LIVER, VALP #### [facility] [address] [place] [address] Dr. Vaibhav Hankins Platelet mean volume (Bld) [Entitic vol] 12.0 fL Normal 9.5-13.[address] [facility] Comment on above: Performed By: #### G SEGUN, LIPID, LIVER, VALP #### [facility] [address] [place] [address] Dr. Vaibhav Hankins PLT 196 103/ul Normal 150-450 The [facility] Comment on above: Performed By: #### G SEGUN, LIPID, LIVER, VALP #### [facility] [address] [address] [address] Vaibhav Hankins RBC 5.59 106/ul Critically high 4.20-5.40 [facility] Comment on above: Performed By: #### G SEGUN, LIPID, LIVER, VALP #### [facility] [address] [place] [address] Dr. Vaibhav Hankins WBC 7.7 103/ul Normal 4.0-11.[address] [facility] Comment on above: Performed By: #### G SEGUN, LIPID, LIVER, VALP #### [facility] [address] [place] [address] Dr. Vaibhav Hankins FREE T4on 06-17-2022 Free T4 [Mass/Vol] 0.73 ng/dL Critically low 0.76-1.46 Th e [facility] Comment on above: Performed By: #### F T4 #### [facility] [address] [address] [address] Vaibhav Hankins LIPID PROFILEon 12-25-2021 CHOL-HDL RATIO NORM SEE BELOW Normal [facility] Comment on above: Result Comment: 3.3 - 4.4 LOW RISK 4.4 - 7.1 AVERAGE RISK 7.1 - 11.0 MODERATE RISK >11.0 HIGH RISK Performed By: #### L IPID, TSH, CMP #### [facility] [address] [address] [address] Vaibhav Hankins Cholesterol [Mass/Vol] 300 mg/dL Critically high <=[address] [facility] Comment on above: Performed By: #### L IPID, TSH, CMP #### [facility] [address] [address] [address] Vaibhav Hankins Cholesterol in HDL [Mass/Vol] 85 mg/dL Critically high 40-[address] [facility] Comment on above: Performed By: #### L IPID, TSH, CMP #### [facility] [address] [address] [address] Vaibhav Hankins Cholesterol in LDL [Mass/Vol] 198.8 mg/dL Normal [facility] Comment on above: Performed By: #### L IPID, TSH, CMP #### [facility] [address] [address] [address] Vaibhav Hankins Cholesterol.total/Ch olesterol in HDL [Mass ratio] 3.5 {ratio} Normal [facility] Comment on above: Performed By: #### L IPID, TSH, CMP #### [facility] [address] [address] [address] Vaibhav Hankins HDL NORMAL > or = 60 mg/dl - LOW CARDIOVASCULAR RISK <40 mg/dl - HIGH CARDIOVASCULAR RISK Normal [facility] Comment on above: Performed By: #### L IPID, TSH, CMP #### [facility] [address] [address] [address] Vaibhav Hankins LDL CALC NORMAL SEE BELOW Normal [facility] Comment on above: Result Comment: <100 mg/dl OPTIMAL 100 - 129 mg/dl NEAR OR ABOVE OPTIMAL 130 - 159 mg/dl BORDERLINE HIGH 160 - 189 mg/dl HIGH >190 mg/dl VERY HIGH Performed By: #### L IPID, TSH, CMP #### [facility] [address] [address] [address] Vaibhav Hankins Triglyceride [Mass/Vol] 81 mg/dL Normal <=[address] [facility] Comment on above: Performed By: #### L IPID, TSH, CMP #### [facility] [address] [address] [address] Vaibhav Hankins VLDL CALC 16.2 mg/dL Normal [facility] Comment on above: Performed By: #### L IPID, TSH, CMP #### [facility] [address] [address] [address] Vaibhav Hankins PROF 14(COMP METB)on 022 Albumin [Mass/Vol] 4.0 g/dL Normal 3.4-5.0 [facility] Comment on above: Performed By: #### G SEGUN, LIPID, LIVER, VALP #### [facility] [address] [address] [address] Vaibhav Hankins Albumin/Globulin [Mass ratio] 1.4 {ratio} Normal [facility] Comment on above: Performed By: #### G SEGUN, LIPID, LIVER, VALP #### [facility] [address] [address] [address] Vaibhav Hankins ALP [Catalytic activity/Vol] 69 U/L Normal 46-[address] [facility] Comment on above: Performed By: #### G SEGUN, LIPID, LIVER, VALP #### [facility] [address] [address] [address] Vaibhav Hankins ALT [Catalytic activity/Vol] 26 U/L Normal 14-[address] [facility] Comment on above: Performed By: #### G SEGUN, LIPID, LIVER, VALP #### [facility] [address] [address] [address] Vaibhav Hankins Anion gap [Moles/Vol] 14.0 mmol/L Normal [facility] Comment on above: Performed By: #### G SEGUN, LIPID, LIVER, VALP #### [facility] [address] [address] [address] Vaibhav Hankins AST [Catalytic activity/Vol] 20 U/L Normal 15-[address] [facility] Comment on above: Performed By: #### G SEGUN, LIPID, LIVER, VALP #### [facility] [address] [address] [address] Vaibhav Hankins Bilirubin [Mass/Vol] 0.3 mg/dL Normal 0.2-1.[address] [facility] Comment on above: Performed By: #### G SEGUN, LIPID, LIVER, VALP #### [facility] [address] [place] [address] Dr. Vaibhav Hankins Calcium [Mass/Vol] 9.5 mg/dL Normal 8.5-10.1 [facility] Comment on above: Performed By: #### G SEGUN, LIPID, LIVER, VALP #### [facility] [address] [place] [address] Dr. Vaibhav Hankins Chloride [Moles/Vol] 105 mmol/L Normal 98-[address] [facility] Comment on above: Performed By: #### G SEGUN, LIPID, LIVER, VALP #### [facility] [address] [place] [address] Dr. Vaibhav Hankins CO2 [Moles/Vol] 26.1 mmol/L Normal 21.0-32.0 [facility] Comment on above: Performed By: #### G SEGUN, LIPID, LIVER, VALP #### [facility] [address] [place] [address] Dr. Vaibhav Hankins Creatinine [Mass/Vol] 1.14 mg/dL Critically high 0.55-1.[address] [facility] Comment on above: Performed By: #### G SEGUN, LIPID, LIVER, VALP #### [facility] [address] [place] [address] Dr. Vaibhav Hankins EGFR-AF ESTONIAN 57 mL/min/1.73m2 Critically low >=60 The [facility] Comment on above: Performed By: #### G SEGUN, LIPID, LIVER, VALP #### [facility] [address] [address] [address] Vaibhav Hankins EGFR-NON AF ESTONIAN 47 mL/min/1.73m2 Critically low >=[address] [facility] Comment on above: Performed By: #### G SEGUN, LIPID, LIVER, VALP #### [facility] [address] [address] [address] Vaibhav Hankins Globulin (S) [Mass/Vol] 2.9 g/dL Normal [facility] Comment on above: Performed By: #### G SEGUN, LIPID, LIVER, VALP #### [facility] [address] [address] [address] Vaibhav Hankins Glucose [Mass/Vol] 95 mg/dL Normal 74-106 [facility] Comment on above: Performed By: #### G SEGUN, LIPID, LIVER, VALP #### [facility] [address] [place] [address] Dr. Vaibhav Hankins Potassium [Moles/Vol] 5.1 mmol/L Normal 3.5-5.[address] [facility] Comment on above: Performed By: #### G SEGUN, LIPID, LIVER, VALP #### [facility] [address] [place] [address] Dr. Vaibhav Hankins Protein [Mass/Vol] 6.9 g/dL Normal 6.4-8.2 [facility] Comment on above: Performed By: #### G SEGUN, LIPID, LIVER, VALP #### [facility] [address] [address] [address] Vaibhav Hankins Sodium [Moles/Vol] 140 mmol/L Normal 136-145 [facility] Comment on above: Performed By: #### G SEGUN, LIPID, LIVER, VALP #### [facility] [address] [place] [address] Dr. Vaibhav Hankins Urea nitrogen [Mass/Vol] 21.0 mg/dL Critically high 7.0-18.[address] [facility] Comment on above: Performed By: #### G SEGUN, LIPID, LIVER, VALP #### [facility] [address] [place], [place] [address] Dr. Vaibhav Hankins Urea nitrogen/Creatinine [Mass ratio] 18.4 mg/mg Normal [facility] Comment on above: Performed By: #### G SEGUN, LIPID, LIVER, VALP #### [facility] [address] [place], [place] [address] Dr. Vaibhav Hankins TSHon 12-25-2021 TSH 3.441 uIU/mL Normal 0.358-3.740 [facility] Comment on above: Performed By: #### G SEGUN, LIPID, LIVER, VALP #### [facility] [address] [place], [place] [address] Dr. Vaibhav Hankins Laboratory Studieson 019 CK [Catalytic activity/Vol] 87 U/L 22-269 [facility] CK.MB [Mass/Vol] 3.4 ng/mL 0.6-6.3 [facility] CK.MB Calc [Catalytic fraction] 3.9 High 0.00-2.50 [facility] Troponin I.cardiac [Mass/Vol] ng/mL 0-0.02 [facility] Comment on above: JED MA Cut off value > or equal to 0.03 ng/mL in conjunction with clinical conditions of myocardial infarction. (www.escardio.org/guidelines) Laboratory Studieson 019 aPTT Coag (PPP) [Time] 30.9 s 23.0-35.0 [facility] Basophils (Bld) [#/Vol] 0.1 10*3/uL 0.0-0.2 [facility] Basophils/100 WBC (Bld) 0.7 % [facility] Eosinophils (Bld) [#/Vol] 0.3 10*3/uL 0.0-0.45 [facility] Eosinophils/100 WBC (Bld) 3.2 % [facility] Erythrocyte distribution width (RBC) [Ratio] 15.7 % High 11.9-15.3 [facility] Fibrin D-dimer FEU (PPP) [Mass/Vol] < 200 ng/mL 0-243 [facility] Comment on above: The reference range for D-dimer is <243 ng/mL D-dimer units. D-dimer results must be used in conjunction with a clinical pretest probability (PTP) assessment model for deep vein thrombosis (DVT) and pulmonary embolism (PE). Results <230 ng/mL d-dimer units can be used as a negative predictor in patients with low or moderate probability for DVT/PE. Results above the exclusion threshold of 230 ng/ml D-dimer units for DVT/PE may indicate the need for further diagnostic testing. D-Dimer can be increased in hospitalized patients due to co-morbid conditions. Hematocrit (Bld) [Volume fraction] 39.1 % 34.0-46.4 [facility] Hemoglobin (Bld) [Mass/Vol] 13.0 g/dL 11.8-15.4 [facility] INR Coag (PPP) [Relative time] 0.9 {INR} [facility] Comment on above: INR Therapeutic Rang e A) Pre- and Peroperative OAT started two weeks before surgery. NOT HIP SURGERY: 1.5 - 2.5 HIP SURGERY: 2 - 3 B) Primary and secondary prevention of venous THROMBOSIS: 2 - 3 C) Active venous thrombosis, pulmonary embolism and prevention of recurrent venous thrombosis: 2 - 3 D) Prevention of arterial thromboembolism including patients with mechanical heart valves: 3 - 4.5 Lymphocytes (Bld) [#/Vol] 3.3 10*3/uL 1.00-4.8 [facility] Lymphocytes/100 WBC (Bld) 39.1 % [facility] MCH (RBC) [Entitic mass] 26.5 pg 24.7-34.3 [facility] MCHC (RBC) [Mass/Vol] 33.4 g/dL 32.0-35.0 [facility] MCV (RBC) [Entitic vol] 79.4 fL Low 80-100 [facility] Monocytes (Bld) [#/Vol] 0.9 10*3/uL High 0.0-0.8 [facility] Monocytes/100 WBC (Bld) 10.4 % [facility] Neutrophils (Bld) [#/Vol] 3.9 10*3/uL 1.8-7.7 [facility] Neutrophils/100 WBC (Bld) 46.6 % [facility] Nucleated RBC/100 WBC (Bld) [Ratio] 0.1 % 0-0.5 [facility] Platelet mean volume (Bld) [Entitic vol] 9.9 fL 6.3-10.7 [facility] Platelets (Bld) [#/Vol] 187 10*3/uL 150-450 [facility] PT Coag (PPP) [Time] 10.1 s 9.0-12.9 [facility] RBC (Bld) [#/Vol] 4.92 10*6/uL 3.60-5.00 [facility] WBC (Bld) [#/Vol] 8.4 10*3/uL 4.5-11.0 [facility] Calcium [Mass/Vol] 9.4 mg/dL 8.2-10.2 [facility] Chloride [Moles/Vol] 111 mmol/L 95-114 [facility] CO2 [Moles/Vol] 19.6 mmol/L Low 22.0-30.0 [facility] Creatinine [Mass/Vol] 0.84 mg/dL 0.44-1.03 [facility] GFR/1.73 sq M predicted among blacks MDRD (S/P/Bld) [Vol rate/Area] mL/min/{1.73_m2} [facility] Comment on above: GFR estimated refere nce range: According to KDOQI guidelines, <60 ml/min/1.73m2 is sufficient to diagnose a patient with chronic kidney disease. GFR/1.73 sq M predicted among non-blacks MDRD (S/P/Bld) [Vol rate/Area] mL/min/{1.73_m2} [facility] Glucose [Mass/Vol] 73 mg/dL 70-100 [facility] Comment on above: ADA recommended refe rence range Random Glucose Reference Range is dependent on time and content of last meal. Glucose of more than 200 mg/dL in a nonstressed, ambulatory subject supports the diagnosis of Diabetes Mellitus. Natriuretic peptide B (Bld) [Mass/Vol] 30.0 pg/mL 5-100 [facility] Creatinine Clearance (Chem [id number] [facility] Potassium [Moles/Vol] 4.1 mmol/L 3.5-5.1 [facility] Sodium [Moles/Vol] 143 mmol/L 136-146 [facility] Urea nitrogen [Mass/Vol] 7 mg/dL Low 9-23 [facility] Vital Signs Date Time Vital Sign Value Performing Clinician Facility 12-05-2024 14:50-0400 Body mass index (BMI) [Ratio] 28.7 kg/m2 Cesia Kobez [employer]ILING MACHINE [employer]EDER Work Phone: [facility] 12-05-2024 14:50-0400 Body temperature 98.49 [degF] Cesia Atifcarlz [employer]ILING MACHINE FEEDER Work Phone: [facility] 12-05-2024 14:50-0400 Body weight 75.84 kg Cesia Cathyholz NAILING MACHINE FEEDER Work Phone: [facility] 12-05-2024 14:50-0400 Diastolic blood pressure 80 mm[Hg] Cesia Atifhholz NAILING MACHINE FEEDER Work Phone: [facility] 12-05-2024 14:50-0400 Heart rate 69 /min Cesia Aichholz NAILING MACHINE FEEDER Work Phone: [facility] 12-05-2024 14:50-0400 Respiratory rate 20 /min Cesia Aichholz NAILING MACHINE FEEDER Work Phone: [facility] 12-05-2024 14:50-0400 SaO2% (BldA) [Mass fraction] 92 % Cesia Atifhholz NAILING MACHINE FEEDER Work Phone: [facility] 12-05-2024 14:50-0400 Systolic blood pressure 120 mm[Hg] Cesia Aichholz NAILING MACHINE FEEDER Work Phone: [facility] 12-21-2018 10:00-0400 BP Diastolic 66 mm[Hg] [facility]an [facility] 12-21-2018 10:00-0400 BP Systolic 117 mm[Hg] [facility] 12-21-2018 10:00-0400 Pulse (Heart Rate) 73 /min [facility] 12-21-2018 10:00-0400 Pulse Oximetry 99 % [facility] 12-21-2018 10:00-0400 Respiratory Rate 14 /min Karan Bennett [facility] 12-21-2018 05:09-0400 Body Temperature 97.9 [degF] Karan Bennett [facility] Body weight Karan [facility] NEGATED: Highlighted row BMI (Body Mass Index) Karan Bennett [facility] NEGATED: Highlighted row Height Karan Bennett [facility] Encounters Encounter Date Encounter Type Care Provider Facility Start: 03-11-2025 End: 03-11-2025 Refill Cesia Aichholz [employer]ILING MACHINE [employer] Work Phone: [facility] Comment on above: Environmental and se asonal allergies Start: 02-25-2025 End: 02-25-2025 Refill Cesia Aichholz [employer]ILING MACHINE FEEDER Work Phone: [facility] Comment on above: Environmental and se asonal allergies Start: 01-29-2025 ambulatory Aurelio Mora acility:[facility] Start: 01-09-2025 End: 01-10-2025 Refill Cesia Aichholz NAILING MACHINE FEEDER Work Phone: [facility] Comment on above: Primary hypothyroidi sm Start: 12-10-2024 End: 12-10-2024 Clinisync Result Encounter Cesia Aichholz NAILING MACHINE FEEDER Work Phone: [facility] Unsolicited Start: 12-10-2024 End: 12-10-2024 Clinisync Result Encounter Cesia Aichholz NAILING MACHINE FEEDER Work Phone: [facility] Unsolicited Start: 12-10-2024 End: 12-10-2024 Refill Cesia Aichholz NAILING MACHINE FEEDER Work Phone: [facility] Comment on above: Mixed hyperlipidemia (CMS/HCC); Primary hypothyroidism (CMS/HCC) Start: 12-05-2024 End: 12-05-2024 ambulatory CESIA AICHHOLZ Not Available Start: 12-05-2024 End: 12-05-2024 Bamboo flowsheet Cesia Aichholz NAILING MACHINE FEEDER Work Phone: [facility] Start: 12-05-2024 End: 12-05-2024 Bamboo flowsheet Cesia Acosta NAILING MACHINE FEEDER Work Phone: [facility] Start: 12-05-2024 End: 12-05-2024 Patient encounter procedure Cesia Acosta NAILING MACHINE FEEDER Work Phone: [facility] Comment on above: Encounter for subseq uent annual wellness visit (AWV) in Medicare patient (Primary Dx); Primary hypothyroidism (CMS/HCC); Environmental and seasonal allergies; Mixed hyperlipidemia (CMS/HCC); Major depressive disorder with single episode, in partial remission (HCC) (CMS/HCC); Encounter for screening mammogram for malignant neoplasm of breast Start: 11-28-2024 End: 11-28-2024 Orders Only Cesia Acosta NAILING MACHINE FEEDER Work Phone: [facility] Comment on above: Gastroesophageal ref lux disease without esophagitis (Primary Dx); Primary hypothyroidism (CMS/HCC); Vitamin D deficiency; Mixed hyperlipidemia (CMS/HCC) Start: 11-02-2024 End: 11-02-2024 Bamboo flowsheet Shane Romero DO Work Phone: [facility] Start: 11-02-2024 End: 11-02-2024 Bamboo flowsheet Shane Romero DO Work Phone: [facility] Start: 11-02-2024 End: 11-02-2024 ambulatory SHANE ROMERO Not Available Start: 06-16-2024 End: 06-18-2024 Refill Cesia Acosta NAILING MACHINE FEEDER Work Phone: [facility] Comment on above: Primary hypothyroidi sm (CMS/HCC); Mixed hyperlipidemia (CMS/HCC) Start: 07-28-2022 ambulatory WALLPAPERER HELPER CESIA AICHESTHERZ Facil ity:[facility] Start: 04-26-2022 End: 04-27-2022 ambulatory WALLPAPERER HELPER CESIA AICHESTHERZ Facility:[facility] Start: 12-25-2021 End: 12-26-2021 ambulatory WALLPAPERER HELPER CESIA AICHHOLZ Facility:[facility] Start: 11-12-2021 End: 11-12-2021 ambulatory SHANE ROMERO Facility:[facility] Start: 12-20-2018 End: 12-21-2018 Evaluation and management of inpatient Karan Bennett [facility] Procedures Date Procedure Procedure Detail Performing Clinician Start: 12-10-2024 ALL CBC WITH AUTO DIFF Cesia Acosta NAILING MACHINE FEEDER Work Phone: Start: 11-02-2024 End: 11-02-2024 Ophth medical xm&eval comprhnsv estab pt 1/> Bilateral posterior capsular opacification Shane Romero DO Work Phone: Comment on above: Bilateral posterior capsular opacification (Primary Dx) Plan of Treatment Date Care Activity Detail Author Start: 12-12-2025 End: 12-12-2025 Patient encounter procedure [facility] Start: 12-05-2025 Medicare Annual Wellness (AWV) Medicare Annual Wellness (AWV) [facility] Start: 06-11-2025 End: 06-11-2025 Patient encounter procedure [facility] Start: 03-11-2025 Influenza vaccination [facility] Start: 02-11-2025 End: 12-10-2025 Lipid 1996 panel - Serum or Plasma Lipid panel Lab Routine Mixed hyperlipidemia (CMS/HCC) Expected: 02/11/2025 (Approximate), Expires: 12/10/2025 [facility] Work Phone: Comment on above: Expected: 02/11/2025 (Approximate), Expi res: 12/10/2025 Start: 02-11-2025 End: 12-10-2025 Thyrotropin [Units/volume] in Serum or Plasma TSH Lab Routine Primary hypothyroidism (CMS/HCC) Expected: 02/11/2025 (Approximate), Expires: 12/10/2025 [facility] Comment on above: Expected: 02/11/2025 (Approximate), Expi res: 12/10/2025 Start: 02-11-2025 End: 12-10-2025 Thyroxine (T4) free [Mass/volume] in Serum or Plasma T4, free Lab Routine Primary hypothyroidism (CMS/HCC) Expected: 02/11/2025 (Approximate), Expires: 12/10/2025 [facility] Comment on above: Expected: 02/11/2025 (Approximate), Expi res: 12/10/2025 Start: 02-09-2025 End: 12-10-2025 Alanine aminotransferase [Enzymatic activity/volume] in Serum or Plasma ALT Lab Routine Mixed hyperlipidemia (CMS/HCC) Expected: 02/09/2025 (Approximate), Expires: 12/10/2025 [facility] Comment on above: Expected: 02/09/2025 (Approximate), Expi res: 12/10/2025 Start: 02-09-2025 End: 12-10-2025 Aspartate aminotransferase [Enzymatic activity/volume] in Serum or Plasma AST Lab Routine Mixed hyperlipidemia (CMS/HCC) Expected: 02/09/2025 (Approximate), Expires: 12/10/2025 [facility] Comment on above: Expected: 02/09/2025 (Approximate), Expi res: 12/10/2025 Start: 12-05-2024 End: 12-05-2024 Patient encounter procedure [facility] Comment on above: Primary hypothyroidism (CMS/HCC) (Primar y Dx) Start: 12-05-2024 End: 02-04-2026 MG Breast - bilateral Screening Bilateral screening mammogram Imaging Routine Encounter for screening mammogram for malignant neoplasm of breast Expected: 12/05/2024 (Approximate), Expires: 02/04/2026 [facility] Work Phone: Comment on above: Expected: 12/05/2024 (Approximate), Expi res: 02/04/2026 Start: 11-28-2024 End: 11-28-2025 25-hydroxyvitamin D3 [Mass/volume] in Serum or Plasma Vitamin D 25 hydroxy Lab Routine Vitamin D deficiency Expected: 11/28/2024 (Approximate), Expires: 11/28/2025 [facility] Comment on above: Expected: 11/28/2024 (Approximate), Expi res: 11/28/2025 Start: 11-28-2024 End: 11-28-2025 CBC W Auto Differential panel - Blood CBC and differential Lab Routine Gastroesophageal reflux disease without esophagitis Expected: 11/28/2024 (Approximate), Expires: 11/28/2025 [facility] Work Phone: Comment on above: Expected: 11/28/2024 (Approximate), Expi res: 11/28/2025 Start: 11-28-2024 End: 11-28-2025 Comprehensive metabolic 2000 panel - Serum or Plasma Comprehensive metabolic panel Lab Routine Vitamin D deficiency Mixed hyperlipidemia (CMS/HCC) Expected: 11/28/2024 (Approximate), Expires: 11/28/2025 [facility] Comment on above: Expected: 11/28/2024 (Approximate), Expi res: 11/28/2025 Start: 11-28-2024 End: 11-28-2025 Lipid 1996 panel - Serum or Plasma Lipid panel Lab Routine Mixed hyperlipidemia (CMS/HCC) Expected: 11/28/2024 (Approximate), Expires: 11/28/2025 [facility] Comment on above: Expected: 11/28/2024 (Approximate), Expi res: 11/28/2025 Start: 11-28-2024 End: 11-28-2025 Thyrotropin [Units/volume] in Serum or Plasma TSH Lab Routine Primary hypothyroidism (CMS/HCC) Expected: 11/28/2024 (Approximate), Expires: 11/28/2025 [facility] Comment on above: Expected: 11/28/2024 (Approximate), Expi res: 11/28/2025 Start: 11-28-2024 End: 11-28-2025 Thyroxine (T4) free [Mass/volume] in Serum or Plasma T4, free Lab Routine Primary hypothyroidism ([facility]/HCC) Expected: 11/28/2024 (Approximate), Expires: 11/28/2025 [facility] Comment on above: Expected: 11/28/2024 (Approximate), Expi res: 11/28/2025 Start: 11-28-2024 End: 11-28-2025 Urinalysis complete panel - Urine Urinalysis with reflex microscopic (clean catch) Lab Routine Gastroesophageal reflux disease without esophagitis Expected: 11/28/2024 (Approximate), Expires: 11/28/2025 [facility] Comment on above: Expected: 11/28/2024 (Approximate), Expi res: 11/28/2025 Start: 11-02-2024 End: 11-02-2024 Patient encounter procedure 11/02/2024 10:15 AM EDT Office Visit [facility] [address] [place] [address] Shane Romero DO [address] [place] [address] Arrived [facility] Comment on above: Arrived Start: 03-11-2024 Influenza vaccination Influenza Vaccine (#1) [facility] Start: 1993 Screening for malignant neoplasm of breast Mammogram [facility] Start: 1972 Pneumococcal Vaccine: 65+ Years (1 of 2 - PCV) Pneumococcal Vaccine: 65+ Years (1 of 2 - PCV) [facility] Start: 09-11-1959 Pneumococcal Vaccine: 65+ Years (1 of 2 - PCV) Pneumococcal Vaccine: 65+ Years (1 of 2 - PCV) [facility] Start: 1955 Medicare Annual Wellness (AWV) Medicare Annual Wellness (AWV) [facility] Start: 1955 Screening for malignant neoplasm of colon [facility] Payers Date Payer Category Payer Self-pay 2019 Medicaid [place]ICAID [place] [id number] 2013 Medicare MEDICARE [id number] 1959 Medicaid [id number] 1959 Medicare [id number] 1953 Unknown [id number] 1953 Unknown [id number] 1953 Unknown [id number] 1953 Unknown [id number] 1953 Unknown [id number] 1953 Unknown [id number] 1953 Unknown [id number] Unknown [id number] Social History Date Type Detail Facility Start: 08-10-2023 End: 11-02-2024 Tobacco smoking status SCIS Smokes tobacco daily [facility] History of tobacco use Cigarette Smoker [facility] Start: 10-12-2023 End: 12-05-2024 Alcoholic beverage intake Current drinker of alcohol (finding) [facility] Start: 10-12-2023 End: 12-05-2024 Alcoholic beverage intake [facility] Start: 10-12-2023 End: 12-05-2024 Tobacco use panel [facility] Start: 10-12-2023 Alcohol Comment caffine: coffe e 2 cups daily [facility] Start: 1955 Sex assigned at Not on file [facility] Functional Status Date Assessment Result Facility 12-05-2024 Patient Health [facility] ionnaire 2 item (PHQ-2) [Reported] [facility] 12-05-2024 How difficult have t hese problems made it for you to do your work, take care of things at home, or get along with other people? Not difficult at all 12/05/2024 3:01 PM EDT MEGAN SORIANO Not difficult at all [facility] Clinical Notes 11-12-2021 to 12-05-2024 Cesia Acosta NP - 12/05/2024 5:32 PM Brien Acosta NP - 12/05/2024 5:31 PM Brien Acosta NP - 12/05/2024 5:31 PM EDRayna Acosta NP - 12/05/2024 5:30 PM EDTPatient Instructions Note Date & Type Note Facility 12-05-2024 History of Present illness Narrative Associated Problem(s): Encounter for subsequent annual wellness visit (AWV) in Medicare patient Reviewed Ht/Wt/BMI Recommend eye exam yearly Recommend dental exams twice a year Balance work/leisure activities Exercises is recommended most days of the week (appropriate as chronic conditions allow) Follow up yearly and prn Associated Problem(s): Major depressive disorder with single episode, in partial remission (HCC) (CMS/HCC) Continue with dr ward Associated Problem(s): Mixed hyperlipidemia (CMS/HCC) Statin therapy prescribed Check labs yearly and prn dose changes Associated Problem(s): Environmental and seasonal allergies Sxs likely to be allergy related, try anti histamine as well as nasal steroids Associated Problem(s): Primary hypothyroidism (CMS/HCC) Was on levo, no labs over a year Get labs completed THEN will re order script Allergies Images from the original note were not [...] Past Medical History: Diagnosis Date Alcohol addiction ([facility]) Anxiety At low risk for fall Depression ([facility]) Dermatitis, atopic GERD (gastroesophageal reflux disease) Hypothyroidism in adult ([facility]) Mixed hyperlipidemia ([facility]) Seasonal allergies Sinusitis Tinea Tobacco user Vitamin D insufficiency Past Surgical History: Procedure Laterality Date CATARACT EXTRACTION Bilateral 2021 Dr. Romero DILATION AND CURETTAGE OF UTERUS OTHER SURGICAL HISTORY Laparoscopy family history is not on file. OBJECTIVE: Visit Vitals BP 120/80 (BP Location: Left arm, Patient Position: Sitting, BP Cuff Size: Adult long) Pulse 69 Temp 98.5 F (Temporal) Resp 20 Wt 167 lb 3.2 oz SpO2 92% BMI 28.70 kg/m Smoking Status Every Day BSA 1.85 m Physical Exam Vitals and nursing note reviewed. [...] disorder with single episode, in partial remission ([facility]) ([facility]) Continue with dr ward Primary hypothyroidism ([facility]) - Primary Was on levo, no labs over a year Get labs completed THEN will re order script Mixed hyperlipidemia ([facility]) Statin therapy prescribed Check labs yearly and prn dose changes Encounter for screening mammogram for malignant neoplasm of breast Relevant Orders Bilateral screening mammogram Environmental and seasonal allergies Sxs likely to be allergy related, try anti histamine as well as nasal steroids Relevant Medications cetirizine (ZyrTEC) 10 MG tablet fluticasone (Flonase) 50 MCG/ACT nasal spray documented in this encounter [facility] 12-05-2024 Instructions Cesia Acosta NP - 12/05/2024 2:40 PM EDT Get labs checked Try some allergy medications for next 2 weeks if not better call me documented in this encounter [facility] 11-02-2024 History of Present illness Narrative Images from the original note were not included. Subjective Patient ID: Lucille Meyers is a 69 y.o. female. Chief Complaint Blurred Vision HPI Blurred Vision In both eyes. Onset was gradual. Vision is blurred, difficult to focus and hazy. Severity is moderate. This started months ago. It is worse throughout the day. Context: distance vision, mid-range vision, near vision and reading. Associated symptoms include glare and headache. Treatments tried include glasses. Response to treatment was no improvement. Comments Pt presents for YAG evaluation referred by Dr. Martinez. Pt states she is having haziness/cloudiness for the past few mths, vision is very blurred, she went 3wks ago to take driving test and failed. Pt states she has glasses that are a 4+ years old she used to use for reading but they do not help. Last edited by JASMIN Ramos on 11/02/2024 10:19 AM. No current outpatient medications on file. (Ophthalmic Agents) No current facility-administered medications for this visit. (Ophthalmic Agents) Current Outpatient Medications (Other) Medication Sig Dispense Refill divalproex (Depakote ER) 250 MG 24 hr tablet Take 1 tablet by mouth in the morning. divalproex (Depakote ER) 500 MG 24 hr tablet Take 1 tablet by mouth at bedtime DULoxetine (Cymbalta) [address] capsule Take 30 mg by mouth Daily DULoxetine (Cymbalta) [address] capsule Take 1 capsule by mouth in the morning. ezetimibe (Zetia) 10 MG tablet Take 1 tablet (10 mg) by mouth Daily 90 tablet 0 levothyroxine (Synthroid, Levoxyl) 25 MCG tablet Take 1 tablet (25 mcg) by mouth in the morning. Take before meals. 90 tablet 0 Multiple Vitamin (multivitamin) tablet Take 1 tablet by mouth Daily QUEtiapine (SEROquel) 50 MG tablet Take 1 tablet by mouth at bedtime No current facility-administered medications for this visit. (Other) Past Medical History: Diagnosis Date Alcohol addiction (CMS/HCC) Anxiety At low risk for fall Depression (CMS/HCC) Dermatitis, atopic GERD (gastroesophageal reflux disease) Hypothyroidism in adult (CMS/HCC) Mixed hyperlipidemia (CMS/HCC) Seasonal allergies Sinusitis Tinea Tobacco user Vitamin D insufficiency Allergies Allergen Reactions Codeine GI intolerance Review of Systems Constitutional: Negative. HENT: Negative. Eyes: Negative. Respiratory: Negative. Cardiovascular: Negative. Gastrointestinal: Negative. Genitourinary: Negative. Musculoskeletal: Negative. Skin: Negative. Neurological: Negative. Psychiatric/Behavioral: Negative. Hematological: Negative. Endocrine: Negative. Allergic/Immunologic: Negative. Objective Base Eye Exam Visual Acuity (Snellen - Linear) Right Left Dist sc 20/400 20/60 Tonometry (Applanation, 11:05 AM) Right Left Pressure 16 16 Pupils Pupils Right PERRL Left PERRL Visual Chambers Left Right Full Full Extraocular Movement Right Left Full, Ortho Full, Ortho Neuro/Psych Oriented x3: Yes Dilation Both eyes: Additional Tests Keratometry K1 Pullman K2 Pullman Right 4375 170 44.50 80 Left 44.00 177 44.50 87 Glare Testing High Right Left 20/200 Slit Lamp and Fundus Exam External Exam Right Left External Normal Normal Slit Lamp Exam Right Left Lids/Lashes Blepharitis, Dermatochalasis - upper lid Blepharitis, Dermatochalasis - upper lid Conjunctiva/Sclera White and quiet White and quiet Cornea Decreased tear film Decreased tear film Anterior Chamber Deep and quiet Deep and quiet Iris Round and reactive Round and reactive Lens Posterior chamber intraocular lens, 4+ Posterior capsular opacification Posterior chamber intraocular lens, 2+ Posterior capsular opacification Anterior Vitreous Normal Normal Fundus Exam Right Left Disc Normal Normal Macula Normal Normal Vessels Normal Normal Periphery Normal Normal Refraction Wearing Rx Sphere Cylinder Pullman Add Right -0.75 +0.00 180 +2.50 Left +0.00 -0.25 122 +2.50 Age: 4+ Type: prog Manifest Refraction Sphere Cylinder Pullman Right Left -0.50 -0.25 109 Right eye (OD) no center Assessment/Plan Bilateral posterior capsular opacification - PCO OU: (Posterior Capsule Opacification) Can be observed without intervention if PCO is not visually significant. Nd:YAG laser capsulotomy may be considered if impairment of vision rises to a level that dose not meet the patient's functional needs or interferes with activities of daily living. Risks, benefits and alternatives to the procedure will be reviewed. If the patient has undergone Nd:YAG laser capsulotomy, they are to notify their floor mechanic promptly if they have a significant change in symptoms, such as flashes of light (photopsia), an increase in floaters, loss of visual field or decrease in visual acuity. documented in this encounter [facility] 11-12-2021 Note HISTORY AND PHYSICAL EXAMINATION HISTORY: Patient is a 66-year-old white female with complaints of declining vision out of her right eye. The onset of this has been over the last several years, but worsened over the last six months, and she had previously been seen. She states having difficulty seeing at night time while driving with headlights creating glare and halos. She also states having difficulty reading the newspaper and watching television. PAST OCULAR HISTORY: 1. Status post cataract extraction with intraocular lens placed for the left eye. 2. Cataract right eye. PAST MEDICAL HISTORY: 1. Hypothyroidism. 2. Anxiety. 3. PTSD. 4. Hypercholesterolemia. SOCIAL HISTORY: Denies alcohol, recreational drug abuse. Smokes daily. SYSTEMIC MEDICATIONS: Simvastatin, quetiapine, levothyroxine, duloxetine and divalproex. ALLERGIES: To codeine. REVIEW OF SYSTEMS: No pertinent positives. PHYSICAL EXAM: VITALS: Blood pressure measured 122/77, respiration of 12 and pulse of 56. GENERAL: She is awake, alert and oriented x3, well developed, well nourished, in no acute distress. HEART: Regular rate and rhythm. LUNGS: Clear bilaterally. ABDOMEN: Soft, non-tender, non-distended. EXTREMITIES: No pitting edema. OPHTHALMIC EXAM: Revealed a visual acuity of 20/50 -2 that glared to 20/400 in the right eye and 20/30 in the left eye. Pupils motility, muscle balance, confrontational visual chambers within normal limits bilaterally. Pressures measured at 16 bilaterally. Slit lamp exam revealed blepharitis with a severe decrease in tear film bilaterally. Conjunctiva, cornea, anterior chamber and iris were within normal limits bilaterally. Lens status demonstrated a 2+ nuclear sclerosis with trace PSC and vacuoles in the right eye and a well centered posterior chamber intraocular lens in the left eye. FUNDUS EXAM: Revealed good views with good dilation bilaterally. Optic discs, macula, vessels, periphery and vitreous were within normal limits bilaterally. ASSESSMENT AND PLAN: 1. Visually significant cataract, right eye. After risks, benefits, alternatives, as well as expectations were delivered to the patient, she elected to go forward with cataract removal. She understands the risks include but not limited to infection, bleeding, loss of vision, loss of the eye itself. Secondly, she understands postoperatively she is likely to require spectacle correction for best visual acuity. Finally, a complete ophthalmic exam was performed, there is not determined to be any other source of visual decline other than that of the cataract. 2. COVID-19, the patient was briefed in the office and consented for elective cataract surgery in the setting of the pandemic of coronavirus. She understands that she is at heightened risk going into a hospital setting; however, feels that her activities of daily living are depleted severe enough by her cataracts that she is willing to incur this risk and go forward with her elective procedure. [facility] Signed and Approved by: SHANE ROMERO 11/13/2021 12:13:[address] [facility] 11-12-2021 Note OPERATIVE NOTE OPERATION DATE: 11/12/2021 SURGEON: Shane Romero M.D. PREOPERATIVE DIAGNOSIS: Nuclear sclerotic cataract right eye. POSTOPERATIVE DIAGNOSIS: Nuclear sclerotic cataract right eye. PROCEDURE NAME: Cataract extraction with intraocular lens placement for the right eye. ANESTHESIA: Topical. ESTIMATED BLOOD LOSS: Zero. COMPLICATIONS: None. PROCEDURE: The patient was brought to the Operating Room in supine position. After proper identification, the right eye was prepped and draped in a sterile ophthalmic fashion. A paracentesis created at the 11 o'clock position. Approximately 1 mL of unpreserved Xylocaine was injected into the anterior chamber followed by Amvisc Plus. Using a 2.6 mm Keratome blade, a clear corneal incision was created at the 9 o'clock limbus. A cystotome was then used to begin a curvilinear capsulorrhexis that was continued for 360 degrees with the Utrata forceps. BSS on a 26 gauge cannula was injected beneath the anterior capsule to hydrodissect as well as hydrodelineate the lens. After ensuring mobility, phacoemulsification was performed in a [id number]-type fashion. After all nuclear material had been removed from the eye, IA was introduced and all residual cortical material was cleaned up. Additional Amvisc Plus was injected into the posterior bag and a lens model MX60, 22.0 diopters was injected and dialed into position. After ensuring centration, IA was reintroduced into the anterior chamber and all residual Amvisc Plus removed from the eye. BSS on a 30 gauge cannula was injected into the stroma of both the clear corneal incision as well as paracentesis to hydrate the wounds. Additional BSS was injected into the anterior chamber to pressurize the eye at approximately 20 to 22 mmHg by finger tension. 0.1 mL of antibiotic was injected into the anterior chamber. Weck-Melanie sponges were used to check the wounds to be watertight. One drop of apraclonidine and one drop of prednisolone acetate were placed into the eye and a shield was placed over top. The patient was sent to the postoperative area in satisfactory condition to follow up the following day for postoperative care. [facility] Signed and Approved by: SHANE ROMERO 12/11/2021 15:27:00 [facility] Evaluation note Diagnosis Primary hypothyroidism (CMS/HCC)- Primary Unspecified hypothyroidism Anxiety Anxiety state, unspecified Major depressive disorder with single episode, in partial remission (HCC) (CMS/HCC) Mixed hyperlipidemia (CMS/HCC) Mixed hyperlipidemia Vertigo Dizziness and giddiness Overweight Abnormal renal function Nonspecific abnormal results of kidney function study Vitamin D deficiency Other fatigue Primary hypothyroidism (CMS/HCC) Unspecified hypothyroidism Mixed hyperlipidemia (CMS/HCC) Mixed hyperlipidemia [facility] Diagnosis Primary hypothyroidism (CMS/HCC)- Primary Unspecified hypothyroidism Anxiety Anxiety state, unspecified Major depressive disorder with single episode, in partial remission (HCC) (CMS/HCC) Mixed hyperlipidemia (CMS/HCC) Mixed hyperlipidemia Vertigo Dizziness and giddiness Overweight Abnormal renal function Nonspecific abnormal results of kidney function study Vitamin D deficiency Other fatigue Bilateral posterior capsular opacification- Primary Unspecified after-cataract [facility] Diagnosis Primary hypothyroidism (CMS/HCC)- Primary Unspecified hypothyroidism Anxiety Anxiety state, unspecified Major depressive disorder with single episode, in partial remission (HCC) (CMS/HCC) Mixed hyperlipidemia (CMS/HCC) Mixed hyperlipidemia Vertigo Dizziness and giddiness Overweight Abnormal renal function Nonspecific abnormal results of kidney function study Vitamin D deficiency Other fatigue Gastroesophageal reflux disease without esophagitis- Primary Esophageal reflux Primary hypothyroidism (CMS/HCC) Unspecified hypothyroidism Vitamin D deficiency Mixed hyperlipidemia (CMS/HCC) Mixed hyperlipidemia [facility] Diagnosis Primary hypothyroidism (CMS/HCC)- Primary Unspecified hypothyroidism Anxiety Anxiety state, unspecified Major depressive disorder with single episode, in partial remission (HCC) ([facility]) Mixed hyperlipidemia ([facility]) Mixed hyperlipidemia Vertigo Dizziness and giddiness Overweight Abnormal renal function Nonspecific abnormal results of kidney function study Vitamin D deficiency Other fatigue Encounter for subsequent annual wellness visit (AWV) in Medicare patient- Primary Primary hypothyroidism ([facility]) Unspecified hypothyroidism Environmental and seasonal allergies Mixed hyperlipidemia ([facility]) Mixed hyperlipidemia Major depressive disorder with single episode, in partial remission (HCC) ([place]) Encounter for screening mammogram for malignant neoplasm of breast [facility] Diagnosis Primary hypothyroidism ([facility])- Primary Unspecified hypothyroidism Anxiety Anxiety state, unspecified Major depressive disorder with single episode, in partial remission (HCC) ([place]) Mixed hyperlipidemia ([facility]) Mixed hyperlipidemia Vertigo Dizziness and giddiness Overweight Abnormal renal function Nonspecific abnormal results of kidney function study Vitamin D deficiency Other fatigue Encounter for subsequent annual wellness visit (AWV) in Medicare patient- Primary Primary hypothyroidism ([facility]) Unspecified hypothyroidism Environmental and seasonal allergies Mixed hyperlipidemia ([facility]) Mixed hyperlipidemia Major depressive disorder with single episode, in partial remission (HCC) ([place]) Encounter for screening mammogram for malignant neoplasm of breast Mixed hyperlipidemia ([facility]) Mixed hyperlipidemia Primary hypothyroidism ([place]) Unspecified hypothyroidism [facility] Diagnosis Primary hypothyroidism- Primary Unspecified hypothyroidism Anxiety Anxiety state, unspecified Major depressive disorder with single episode, in partial remission Mixed hyperlipidemia Mixed hyperlipidemia Vertigo Dizziness and giddiness Overweight Abnormal renal function Nonspecific abnormal results of kidney function study Vitamin D deficiency Other fatigue Encounter for subsequent annual wellness visit (AWV) in Medicare patient- Primary Primary hypothyroidism Unspecified hypothyroidism Environmental and seasonal allergies Mixed hyperlipidemia Mixed hyperlipidemia Major depressive disorder with single episode, in partial remission Encounter for screening mammogram for malignant neoplasm of breast Primary hypothyroidism Unspecified hypothyroidism [facility] Diagnosis Primary hypothyroidism- Primary Unspecified hypothyroidism Anxiety Anxiety state, unspecified Major depressive disorder with single episode, in partial remission Mixed hyperlipidemia Mixed hyperlipidemia Vertigo Dizziness and giddiness Overweight Abnormal renal function Nonspecific abnormal results of kidney function study Vitamin D deficiency Other fatigue Encounter for subsequent annual wellness visit (AWV) in Medicare patient- Primary Primary hypothyroidism Unspecified hypothyroidism Environmental and seasonal allergies Mixed hyperlipidemia Mixed hyperlipidemia Major depressive disorder with single episode, in partial remission Encounter for screening mammogram for malignant neoplasm of breast Environmental and seasonal allergies documented in this encounter [facility] Summary Purpose Family History No Family History Records FoundNo Family History Records FoundNo Family History Records Found Advance Directives No Advanced Directives Records FoundNo Advanced Directives Records FoundNo Advanced Directives Records Found Additional Source Comments INFORMATION SOURCE (unrecogn ized section and content) DATE CREATED AUTHOR 07/28/2022 [facility] DATE CREATED AUTHOR AUTHOR'S ORGANIZ ATION 12/08/2024 [facility] EPIC DATE CREATED AUTHOR AUTHOR'S ORGANIZ ATION 01/31/2025 [facility] Reason for Visit (unrecogniz ed section and content) Reason Comments Med Refill Reason Comments Blurred Vision Reason Comments Medicare Annual Wellness Visit Initial Care Teams (unrecognized sec tion and content) Deli Clerk Relationship Specialty Start Date End Date Jordi Resendiz MD [address] [place] [phone] PCP - General Family Medicine 08/10/23 Cesia Acosta NP [address] [place] [address] Nurse Practitioner Family Medicine 08/10/23 Deli Clerk Relationship Specialty Start Date End Date Jordi Resendiz MD [address] [place] [address] PCP - General Family Medicine 08/10/23 Cesia Acosta NP [address] [place] [address]210[address] PCP - ACO Reach 08/17/24 Cesia Acosta NP [address] [place] [address] Nurse Practitioner Family Medicine 08/10/23 Deli Clerk Relationship Specialty Start Date End Date Jordi Resendiz MD [address] [place] [phone] PCP - General Family Medicine 08/10/23 Cesia Acosta NP [address] [place] [address] PCP - ACO Reach 08/17/24 Cesia Acosta NP [address] [place] [address] Nurse Practitioner Family Medicine 08/10/23 Deli Clerk Relationship Specialty Start Date End Date Jordi Resendiz MD [address] [place] [phone] PCP - General Family Medicine 08/10/23 Cesia Acosta NP [address] [place] [address] PCP - ACO Reach 08/17/24 Cesia Acosta NP [address] [place] [address] Nurse Practitioner Family Medicine 08/10/23 Deli Clerk Relationship Specialty Start Date End Date Jordi Resendiz MD [address] [place] [phone] PCP - General Family Medicine 08/10/23 Cesia Acosta NP [address] [place] [address] PCP - ACO Reach 08/17/24 Cesia Acosta NP [address] [place] [address] Nurse Practitioner Family Medicine 08/10/23 Deli Clerk Relationship Specialty Start Date End Date Jordi Resendiz MD [address] [place] [phone] PCP - General Family Medicine 08/10/23 Cesia Acosta NP [address] [place] [phone] PCP - ACO Reach 08/17/24 Cesia Acosta NP [address] [place] [address] Nurse Practitioner Family Medicine 08/10/23 Deli Clerk Relationship Specialty Start Date End Date Jordi Resendiz MD [address] [place] [phone] PCP - General Family Medicine 08/10/23 Cesia Acosta NP [address] [place] [address] PCP - ACO Reach 08/17/24 Cesia Acosta NP [address] [place] [address] Nurse Practitioner Family Medicine 08/10/23 Deli Clerk Relationship Specialty Start Date End Date Jordi Resendiz MD [address] [place] [phone] PCP - General Family Medicine 08/10/23 Cesia Acosta NP [address] [place] [address] PCP - ACO Reach 08/17/24 Cesia Acosta NP [address] [place] [address] Nurse Practitioner Family Medicine 08/10/23 Deli Clerk Relationship Specialty Start Date End Date Jordi Resendiz MD [address] [place] [phone] PCP - General Family Medicine 08/10/23 Cesia Acosta NP [address] [place] [address] PCP - ACO Reach 08/17/24 Cesia Acosta NP [address] [place] [address] Nurse Practitioner Family Medicine 08/10/23 Deli Clerk Relationship Specialty Start Date End Date Jordi Resendiz MD [address] [place] [phone] PCP - General Family Medicine 08/10/23 Cesia Acosta NP [address] [place] [address] PCP - ACO Reach 08/17/24 Cesia Acosta NP Nurse Practitioner Family Medicine 08/10/23 FOR RECORDS PERTAINING TO PATIENTS WHO ARE OR HAVE BEEN ENROLLED IN A CHEMICAL DEPENDENCY/SUBSTANCEABUSE PROGRAM, SOME INFORMATION MAY BE OMITTED. This clinical summary was aggregated from multiple sources. Caution should be exercised in using it in the provision of clinical care. This summary normalizes information from multiple sources, and as a consequence, information in this document may materially change the coding, format and clinical context of patient data. In addition, data may be omitted in some cases. CLINICAL DECISIONS SHOULD BE BASED ON THE PRIMARY CLINICAL RECORDS. [employer] provides no warranty or guarantee of the accuracy or completeness of information in this document.
--- NOTE | 2025-03-16 01:13 | XR_ITS ---
The [address] [address] Patient Name: PHILIPP SMITH MRN: [id number] date: 1955 Sex: F Assigned Patient Location: ER Current Patient Location: Accession/Order Number: [id number] Exam Date: 03/16/2025 01:30 Report Date: 03/16/2025 08:53 At the request of: CLEM SHEN MD Procedure: XR knee RT 4V RIGHT KNEE - 4 views CLINICAL HISTORY: knee pain COMPARISON: None FINDINGS: There is fragmentation along the tibial tuberosity. No soft tissue swelling is present within this region. Small joint effusion. Moderate degenerative changes involving the right knee. No definite acute bony process. XR/XR knee RT 4V IMPRESSION: MODERATE DEGENERATIVE CHANGES OF THE RIGHT KNEE. NO DEFINITE ACUTE BONY PROCESS IS SEEN. IF OCCULT FRACTURE IS OF CLINICAL CONCERN, FURTHER EVALUATION WITH CT IS SUGGESTED. 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 Impression dictated by: Scott Enriquez Jr., D.O. 03/16/2025 8:53 AM Dictation Location: [place] [address] Electronically authenticated by: [id number] Y Date: 03/16/2025 08:53
[2025-03-16 01:31] LABS: Anion Gap 18.3
[2025-03-16 01:32] LABS: Glucose Urine UA NEGATIVE (NEGATIVE)
[2025-03-16 01:33] LABS: Alanine Aminotransferase 21 U/L (14-59); Albumin Globulin Ratio 1.0; Albumin Level 3.4 g/dL (3.4-5.0); Alkaline Phosphatase 71 U/L (46-116); Aspartate Amino Transferase 19 U/L (15-37); Blood Urea Nitrogen 14.0 mg/dL (7.0-18.0); Calcium 9.1 mg/dL (8.5-10.1); Carbon Dioxide 23.2 mmol/L (21.0-32.0); Chloride 106 mmol/L (98-107); Estimated GFR (African America >60 (>=60 mL/min/1.73m^2); Estimated GFR (Non-African Ame 57 (>=60 mL/min/1.73m^2); Globulin 3.4 g/dL; Glucose 94 mg/dL (74-106); Potassium 4.5 mmol/L (3.5-5.1); Sodium 143 mmol/L (136-145); Total Protein 6.8 g/dL (6.4-8.2)
[2025-03-16 01:41] LABS: Cannabinoid Screen Urine NEGATIVE (NEGATIVE); Methamphetamines Screen Urine NEGATIVE (NEGATIVE); Tricyclic Antidepressant Urine POSITIVE (NEGATIVE)
[2025-03-16 01:59] LABS: Hematocrit 42.8 % (36.0-48.0); Hemoglobin 14.4 g/dL (12.0-16.0); Immature Granulocytes Abs Auto 0.05 10^3/uL (0.00-0.03); Immature Granulocytes Pct Auto 0.6 % (0.0-0.5); Lymphocytes Absolute Auto 2.9 10^3/uL (1.2-3.8); Mean Corpuscular HGB Conc 33.6 g/dL (29.9-35.2); Mean Corpuscular Hemoglobin 27.4 pg (26.7-34.0); Mean Corpuscular Volume 81.4 fL (81.0-99.0); Platelet Count 178 10^3/uL (150-450); Red Blood Count 5.26 10^6/uL (4.20-5.40); White Blood Count 8.2 10^3/uL (4.0-11.0)
[2025-03-16 02:00] LABS: Cast Seen? NONE SEEN #/LPF (NONE SEEN); Crystals Seen? None Seen #/HPF (None Seen); Urine Culture Indicated NO
[2025-03-16] MEDS: IBUPROFEN 600 MG TABLET PO (05:52)
== END 2025-03-16 06:54 | disposition home or self-care (01) ==
PROVIDERS: Emergency Provider Internal Medicine; PCP Nurse Practitioner
DX: S00.83XA Contusion of other part of head, initial encounter (principal); W19.XXXA Unspecified fall, initial encounter; M17.11 Unilateral primary osteoarthritis, right knee; F10.129 Alcohol abuse with intoxication, unspecified; Y90.6 Blood alcohol level of 120-199 mg/100 ml
CPT/HCPCS: 36415; 70450; 70486; 72125; 73564; 76376; 80053; 80307; 80320; 81001; 84484; 85025; 99285